=== PATIENT | male | born 1970 | race Two or more races ===

== ENCOUNTER 2016-08-29 01:27 | Emergency (ER) | payer BC ==
[~2016-08-29] VITALS: Ht 185.4 cm; Wt 74.8 kg
[2016-08-29 03:32] LABS: Basophils # (auto) 0 uL; Basophils % (auto) 0.2 % (0.0-2.0); Eosinophils # (auto) 0 uL; Eosinophils % (auto) 0.1 % (0.0-7.0); Hematocrit 45.2 % (41.0-53.0); Hemoglobin 15.2 g/dL (13.5-17.5); Lymphocytes # (auto) 1.4 uL; Lymphocytes % (auto) 12.3 % (10.0-50.0); Mean Corpuscular Hemoglobin 29.1 pg (28.0-32.0); Mean Corpuscular Hgb Conc. 33.7 g/dL (32.0-36.0); Mean Corpuscular Volume 86.3 fL (80.0-100.0); Mean Platelet Volume 8.1 fL (7.4-10.4); Monocytes # (auto) 0.6 uL; Monocytes % (auto) 5.6 % (0.0-12.0); Neutrophils # (auto) 9.3 uL; Neutrophils % (auto) 81.8 % (37.0-80.0); Platelet Count (auto) 322 10^3/uL (140-450); Red Cell Distribution Width 13.2 % (11.6-16.0); White Blood Cell 11.4 10^3/uL (4.4-10.8)
[2016-08-29 04:01] LABS: Albumin 4.2 g/dL (3.4-5.0); BUN/Creatinine Ratio 8.7; Calcium 8.4 mg/dL (8.5-10.1); Magnesium 1.9 mg/dL (1.6-2.6); Potassium 3.9 mmol/L (3.5-5.1)
[2016-08-29 04:04] LABS: Bilirubin, Total 0.5 mg/dL (0.2-1.0); Total Protein 8.7 g/dL (6.4-8.2)
[2016-08-29] MEDS ORDERED: SODIUM CHLORIDE 0.9% 1,000 ML IVB ONE (08:14)
[2016-08-29] MEDS ORDERED: PANTOPRAZOLE SODIUM 40 MG/10 ML VIAL IV STA (08:14)
[2016-08-29] MEDS ORDERED: MORPHINE SULF INJ 2 MG/ML SYRINGE 1ML IV ONE (08:15)
[2016-08-29] MEDS ORDERED: ONDANSETRON HCL 4 MG/2 ML VIAL IV ONE (08:15)
[2016-08-29 08:34] LABS: Urine Bilirubin Negative (Negative); Urine Blood Negative /uL (Negative); Urine Color Yellow (Yellow); Urine Glucose 4+ mg/dL (Normal); Urine Ketone 1+ (Negative); Urine Mucus FEW (None Seen); Urine Nitrite Negative (Negative); Urine RBC <1 /hpf (0 - 3); Urine Urobilinogen Normal (Negative); Urine pH 6.5 (5.0-8.0)
[2016-08-29 09:53] VITALS: BP 147/78
== END 2016-08-29 11:44 | disposition home or self-care (01) ==
LOC: ER 01:30
DX: K29.70 Gastritis, unspecified, without bleeding (principal); E11.9 Type 2 diabetes mellitus without complications; E78.5 Hyperlipidemia, unspecified
CPT/HCPCS: 36415; 76705; 80053; 81001; 82962; 83690; 83735; 84484; 85025; 93005; 96361; 96374; 96375; 99285; C9113; J2270; J2405; J7030

== ENCOUNTER 2020-04-07 12:12 | Inpatient (IN) | payer BC, OTHER ==
[~2020-04-07] VITALS: Ht 172.7 cm; Wt 76.1 kg
[~2020-04-07 12:12] MED LIST: BENA10TA9 PO; GABA300C10 PO; GLIP10TA9 PO; LEVO500T21 PO; METF-372 PO
[2020-04-07] MEDS ORDERED: PANTOPRAZOLE 40 MG/10 ML VIAL INJ IV STA (12:29)
[2020-04-07] MEDS ORDERED: SODIUM CHLORIDE 0.9% 1,000 ML IVB ONE (12:29)
[2020-04-07] MEDS ORDERED: HYDROmorphone HCL 2 MG/ML VL IV ONE (12:30)
[2020-04-07] MEDS ORDERED: ONDANSETRON HCL 4 MG/2 ML VIAL IV ONE (12:30)
[2020-04-07 14:47] LABS: Basophils # (auto) 0.1 10 ^3/uL (0-0.2); Basophils % (auto) 1.1 % (0.0-2.0); Eosinophils # (auto) 0 10 ^3/uL (0-0.8); Eosinophils % (auto) 0.1 % (0.0-7.0); Hematocrit 35.6 % (41.0-53.0); Hemoglobin 12.2 g/dL (13.5-17.5); Lymphocytes # (auto) 1.1 10 ^3/uL (0.4-5.4); Lymphocytes % (auto) 20.3 % (10.0-50.0); Mean Corpuscular Hemoglobin 30.4 pg (28.0-32.0); Mean Corpuscular Hgb Conc. 34.4 g/dL (32.0-36.0); Mean Corpuscular Volume 88.4 fL (80.0-100.0); Monocytes # (auto) 0.4 10 ^3/uL (0-1.3); Monocytes % (auto) 7.6 % (0.0-12.0); Neutrophils # (auto) 3.7 10 ^3/uL (1.6-8.6); Neutrophils % (auto) 70.9 % (37.0-80.0); Nucleated Red Blood Cells % 0.1 %; Platelet Count (auto) 165 10^3/uL (140-450); Red Blood Cells 4.02 10^6/uL (4.5-5.90); Red Cell Distribution Width 12.9 % (11.8-14.3); White Blood Cell 5.2 10^3/uL (4.4-10.8)
[2020-04-07 15:05] LABS: Chloride 109 mmol/L (98-107); Potassium 3.7 mmol/L (3.5-5.1); Sodium 140 mmol/L (136-145)
[2020-04-07 15:10] LABS: Alanine Aminotransferase 19 U/L (16-61); Amylase 72 U/L (25-115); Anion Gap 4 (5-15); Aspartate Aminotransferase 14 U/L (15-37); BUN/Creatinine Ratio 17.6; Blood Alcohol < 3.0 mg/dL (0-5); Blood Urea Nitrogen 16 mg/dL (7-18); Calcium 7.2 mg/dL (8.5-10.1); Carbon Dioxide 27 mmol/L (21-32); GFR African American 113 mL/min; GFR Non-African American 94 mL/min; Glucose 165 mg/dL (74-106); Lipase 485 U/L (73-393)
[2020-04-07 15:12] LABS: Alkaline Phosphatase 90 U/L (45-117); Bilirubin, Total 0.4 mg/dL (0.2-1.0)
[2020-04-07 16:42] LABS: Urine WBC None Seen /hpf (0 - 3)
[2020-04-07] MEDS ORDERED: ONDANSETRON HCL 4 MG/2 ML VIAL IV PRN ×2 (17:00→17:30)
[2020-04-07] MEDS ORDERED: MORPHINE SULF INJ 2 MG/ML SYRINGE 1ML IV PRN ×2 (17:00→17:30)
[2020-04-07] MEDS ORDERED: NITROGLYCERIN 0.4 MG SL TAB SL PRN (17:00)
[2020-04-07] MEDS ORDERED: MORPHINE SULFATE 4 MG/ML SYR/VIAL IV PRN (17:00)
[2020-04-07] MEDS ORDERED: DEXTROSE (50%) 50ML SYRG IV PRN (17:00)
[2020-04-07] MEDS ORDERED: IOHEXOL 300 MG/ML 100ML BOTTLE IJ ONE (17:02)
[2020-04-07 17:03] LABS: Urine Bacteria NONE SEEN /hpf (None Seen); Urine Blood Negative /uL (Negative); Urine Specific Gravity 1.014 (1.001-1.035)
[2020-04-07] MEDS ORDERED: hydrALAZINE HCL 20 MG/ML VL IV SCH (18:00)
[2020-04-07] MEDS ORDERED: cefTRIAXone 1GM/50ML D5W 50 ML IV ONE (18:30)
[2020-04-07] MEDS: SUCRALFATE 1 GM/10 ML ORAL SUSP PO SCH ×2 (18:31→22:20)
[2020-04-07] MEDS: PANTOPRAZOLE 40 MG TAB PO SCH ×2 (18:32→22:19)
[2020-04-07] MEDS: hydrALAZINE HCL 20 MG/ML VL IV SCH (18:33)
[2020-04-07] MEDS: SODIUM CHLORIDE 0.9% 1,000 ML IV SCH (18:41)
[2020-04-07] MEDS: ENOXAPARIN SOD 40 MG/0.4 ML SYRINGE SC SCH (18:48)
[2020-04-07 18:49] LABS: INR 1.03 (0.9-1.15)
--- NOTE | 2020-04-07 21:31 | NUR ---
ASSUMED PATIENT CARE RECEIVED REPORT AT THIS TIME FROM NURSE LASHAY RN. DUE TO REASSIGNMENT FROM CHARGE NURSE. WILL FOLLOW UP WITH PAST DUE MEDICATIONS.
--- NOTE | 2020-04-07 21:47 | NUR ---
PATIENT IS RESTING IN BED. BED IS LOCKED AT LOWEST POSITION, CALL LIGHT WITHIN REACH. DISCUSSED POC WITH PATIENT AND INSTRUCTED PATIENT TO CALL PRN. WILL CONTINUE TO MONITOR Q1H AND PRN.
[2020-04-07] MEDS: ACCU-CHEK COMFORT CURVE STRIP VI SCH (22:20)
[2020-04-07] MEDS: InsuLIN REG 1unit/0.01ml Soln (100units/ml) SC SCH (22:25)
[2020-04-08] MEDS: ACCU-CHEK COMFORT CURVE STRIP VI SCH ×5 (00:15→16:47)
--- NOTE | 2020-04-08 00:30 | NUR ---
ROUNDS PATIENT IS COMFORTABLE IN BED. SCHEDULED ACCU CHECK DONE AT THIS TIME, RESULTS ON eMAR. NO S/SX OF DISTRESS, SOB OR PAIN. WILL CONTINUE TO MONITOR Q1H AND PRN.
[2020-04-08] MEDS: InsuLIN REG 1unit/0.01ml Soln (100units/ml) SC SCH ×5 (04:00→16:50)
[2020-04-08 05:00] VITALS: BP 116/68
[2020-04-08 06:15] LABS: Basophils # (auto) 0 10 ^3/uL (0-0.2); Basophils % (auto) 1.1 % (0.0-2.0); Eosinophils # (auto) 0 10 ^3/uL (0-0.8); Eosinophils % (auto) 0.7 % (0.0-7.0); Hematocrit 37.2 % (41.0-53.0); Hemoglobin 12.9 g/dL (13.5-17.5); Lymphocytes # (auto) 1.5 10 ^3/uL (0.4-5.4); Lymphocytes % (auto) 33.5 % (10.0-50.0); Mean Corpuscular Hemoglobin 30.5 pg (28.0-32.0); Mean Corpuscular Hgb Conc. 34.7 g/dL (32.0-36.0); Mean Corpuscular Volume 87.9 fL (80.0-100.0); Monocytes # (auto) 0.5 10 ^3/uL (0-1.3); Monocytes % (auto) 10.7 % (0.0-12.0); Neutrophils # (auto) 2.4 10 ^3/uL (1.6-8.6); Platelet Count (auto) 177 10^3/uL (140-450); Red Blood Cells 4.23 10^6/uL (4.5-5.90); White Blood Cell 4.4 10^3/uL (4.4-10.8)
[2020-04-08 06:29] LABS: Albumin 2.9 g/dL (3.4-5.0); Calcium 7.6 mg/dL (8.5-10.1); Potassium 3.7 mmol/L (3.5-5.1)
[2020-04-08 06:33] LABS: Bilirubin, Total 0.5 mg/dL (0.2-1.0); Total Protein 5.7 g/dL (6.4-8.2)
[2020-04-08] MEDS: SUCRALFATE 1 GM/10 ML ORAL SUSP PO SCH ×3 (06:37→16:50)
[2020-04-08] MEDS: hydrALAZINE HCL 20 MG/ML VL IV SCH ×3 (06:42→11:44)
[2020-04-08] MEDS ORDERED: PANTOPRAZOLE 40 MG/10 ML VIAL INJ IV SCH ×2 (07:00→10:00)
--- NOTE | 2020-04-08 07:42 | NUR ---
CLOSING NOTE- NOC SHIFT PATIENT IS ALERT AND ORIENTED X4, ANSWERS IN COMPLETE SENTENCES AND MAKES APPROPRIATE EYE CONTACT. NO S/SX OF DISTRESS, SOB OR PAIN. PATIENT IS NPO; PATIENT VERBALIZES UNDERSTANDING. WILL ENDORSE PATIENT CARE TO DAY NURSE CL LARA.
[2020-04-08] MEDS: SODIUM CHLORIDE 0.9% 1,000 ML IV SCH (07:57)
[2020-04-08] MEDS ORDERED: LIDOCAINE VISCOUS 2% 15ML UD ONE (08:20)
[2020-04-08] MEDS ORDERED: SODIUM CHLORIDE LOCK 10 ML ONE (08:20)
[2020-04-08] MEDS ORDERED: diphenhdrAMINE HCL 50 MG/1 ML VL ONE (08:21)
[2020-04-08] MEDS ORDERED: fentaNYL CITRATE 100 MCG/2 ML VL ONE (08:21)
[2020-04-08] MEDS ORDERED: MIDAZOLAM HCL 5 MG/ML-1ML VIAL ONE (08:21)
[2020-04-08] MEDS: PANTOPRAZOLE 40 MG TAB PO SCH (08:49)
[2020-04-08 09:00] VITALS: BP 121/62
[2020-04-08] MEDS ORDERED: cefTRIAXone 1GM/50ML D5W 50 ML IV SCH (09:00)
--- NOTE | 2020-04-08 09:48 | NUR ---
TOOK PATIENT DOWN TO PRE OP FOR EGD WITH DR. SANTIAGO. CL LARA TOOK OVER CARE OF PATIENT AT THIS TIME.
--- NOTE | 2020-04-08 10:20 | NUR ---
Called [facility] [place] and spoke with Jayde Pérez, gave a clinical report and was given authorization for 04/08/20 #[id number].
[2020-04-08] MEDS: ENOXAPARIN SOD 40 MG/0.4 ML SYRINGE SC SCH (11:43)
[2020-04-08 13:00] VITALS: BP 132/77
[2020-04-08] MEDS ORDERED: PANT40T PO (14:18)
[2020-04-08] MEDS ORDERED: LISI-646 PO (14:34)
[2020-04-08] MEDS ORDERED: ATOR20TA PO (14:34)
[2020-04-08] MEDS ORDERED: INSUINJ2 SC (14:34)
[2020-04-08 15:48] LABS: Cholesterol 114 mg/dL (< 200); Triglycerides 117 mg/dL (< 150)
[2020-04-08 15:50] LABS: HDL Cholesterol 41 mg/dL (40-59); LDL Cholesterol 61 mg/dL (< 100)
[2020-04-08 16:40] VITALS: BP 129/67
--- NOTE | 2020-04-08 16:50 | NUR ---
Discharge instructions given as ordered. Encourage to follow up with Primary care provider as instructed. All questions and concerns addressed. Patient verbalized understanding. Medication reconciliation form completed and copy given to patient. IV removed with catheter intact, pressure dressing applied. Telemetry unit returned to ICU. Patient taken to vehicle via wheelchair with all personal belongings, accompanied by staff and family member. No distress noted at time of departure.
== END 2020-04-08 16:50 | disposition home or self-care (01) | DRG 391 ==
LOC: EDBD 12:12 → ER 12:12 → EDUNIT# 12:12 → WEST WING 20:15 → TELE-WESTW 21:09
PROVIDERS: ATTEND Internal Medicine
PROC: 0DB68ZX Excision of Stomach, Via Natural or Artificial Opening Endoscopic, Diagnostic (ICD-10-PCS; principal; 2020-04-08 09:49)
DX: K29.70 Gastritis, unspecified, without bleeding (principal); K85.90 Acute pancreatitis without necrosis or infection, unspecified; E11.9 Type 2 diabetes mellitus without complications; E78.5 Hyperlipidemia, unspecified; I10 Essential (primary) hypertension; Z79.84 Long term (current) use of oral hypoglycemic drugs; Z79.899 Other long term (current) drug therapy; Z20.828 Contact with and (suspected) exposure to other viral communicable diseases
CPT/HCPCS: 36415; 71045; 74177; 76705; 80053; 80061; 80320; 81001; 82150; 82962; 83036; 83690; 85025; 85610; 86850; 86900; 86901; 96361; 96374; 96375; C9113; G0378; J0696; J1815; J2250; J2405

== ENCOUNTER 2021-05-08 04:08 | Emergency (ER) | payer OTHER ==
[~2021-05-08] VITALS: Ht 185.4 cm; Wt 86.2 kg
[~2021-05-08 04:08] MED LIST changes: +ATOR20TA PO; -BENA10TA9 PO; -GABA300C10 PO; -GLIP10TA9 PO; +INSUINJ2 SC; -LEVO500T21 PO; +LISI20TA28 PO; -METF-372 PO; +PANT40T PO
[2021-05-08 05:31] LABS: Basophils # (auto) 0 10 ^3/uL (0-0.2); Basophils % (auto) 0.7 % (0.0-2.0); Eosinophils # (auto) 0 10 ^3/uL (0-0.8); Eosinophils % (auto) 0.1 % (0.0-7.0); Hematocrit 42.6 % (41.0-53.0); Hemoglobin 14.6 g/dL (13.5-17.5); Lymphocytes # (auto) 1.1 10 ^3/uL (0.4-5.4); Lymphocytes % (auto) 15.7 % (10.0-50.0); Mean Corpuscular Hemoglobin 29.8 pg (28.0-32.0); Mean Corpuscular Hgb Conc. 34.3 g/dL (32.0-36.0); Mean Corpuscular Volume 86.8 fL (80.0-100.0); Monocytes # (auto) 0.3 10 ^3/uL (0-1.3); Monocytes % (auto) 4.2 % (0.0-12.0); Neutrophils # (auto) 5.5 10 ^3/uL (1.6-8.6); Neutrophils % (auto) 79.3 % (37.0-80.0); Nucleated Red Blood Cells % 0.2 %; Red Blood Cells 4.91 10^6/uL (4.5-5.90); Red Cell Distribution Width 13.3 % (11.8-14.3); White Blood Cell 6.9 10^3/uL (4.4-10.8)
[2021-05-08 05:43] LABS: Alanine Aminotransferase 28 U/L (16-61); Albumin 4.1 g/dL (3.4-5.0); Amylase 64 U/L (25-115); Anion Gap 10 (5-15); Aspartate Aminotransferase 15 U/L (15-37); BUN/Creatinine Ratio 18.7; Blood Urea Nitrogen 20 mg/dL (7-18); Calcium 8.8 mg/dL (8.5-10.1); Carbon Dioxide 24 mmol/L (21-32); Chloride 101 mmol/L (98-107); GFR African American 94 mL/min; GFR Non-African American 77 mL/min; Glucose 367 mg/dL (74-106); Lipase 177 U/L (73-393); Magnesium 2.2 mg/dL (1.6-2.6); Potassium 4.2 mmol/L (3.5-5.1); Sodium 135 mmol/L (136-145)
[2021-05-08 05:48] LABS: Alkaline Phosphatase 147 U/L (45-117); Bilirubin, Total 0.7 mg/dL (0.2-1.0); Total Protein 8.2 g/dL (6.4-8.2)
[2021-05-08] MEDS ORDERED: ONDANSETRON HCL 4 MG/2 ML VIAL IV ONE ×2 (06:00→11:15)
[2021-05-08 08:29] LABS: Urine Bacteria NONE SEEN /hpf (None Seen); Urine Blood Negative /uL (Negative); Urine WBC <1 /hpf (0 - 3)
[2021-05-08] MEDS ORDERED: PROCHLORPERAZINE EDISYLATE 5 MG/ML 2ML VIAL IV ONE (09:30)
[2021-05-08] MEDS ORDERED: ALUM & MAG HYDROX-SIMETH LIQ(MAALOX) 30 ML PO ONE (09:30)
[2021-05-08] MEDS ORDERED: MORPHINE SULFATE 4 MG/ML SYR/VIAL IV ONE (09:30)
[2021-05-08] MEDS ORDERED: PANTOPRAZOLE 40 MG TAB PO ONE (09:30)
[2021-05-08] MEDS ORDERED: DONNATAL 5ml ORAL Elix (BELLADONNA ALK-PHENOBARB) PO ONE (09:30)
[2021-05-08] MEDS ORDERED: LIDOCAINE VISCOUS 2% 15ML UD PO ONE (09:30)
[2021-05-08] MEDS ORDERED: SODIUM CHLORIDE 0.9% 1,000 ML IVB ONE (09:30)
[2021-05-08] MEDS ORDERED: MORPHINE SULFATE INJECTION 2 MG/ML SYRG IV ONE (11:15)
[2021-05-08 14:37] VITALS: BP 146/77
== END 2021-05-08 14:43 | disposition home or self-care (01) ==
LOC: ER 04:08 → EDBD 04:08 → EDUNIT# 04:08 → ER 14:43
DX: K52.9 Noninfective gastroenteritis and colitis, unspecified (principal); E11.65 Type 2 diabetes mellitus with hyperglycemia; K90.49 Malabsorption due to intolerance, not elsewhere classified; I10 Essential (primary) hypertension; E78.5 Hyperlipidemia, unspecified; Z79.4 Long term (current) use of insulin; Z79.899 Other long term (current) drug therapy
CPT/HCPCS: 36415; 74176; 80053; 81001; 82150; 83690; 83735; 84484; 85025; 93005; 96361; 96374; 96375; 96376; 99285; J0780; J2270; J2405; J7030

== ENCOUNTER 2021-05-09 22:00 | Emergency (ER) | payer OTHER ==
[~2021-05-09] VITALS: Ht 185.4 cm; Wt 77.1 kg
[2021-05-09] MEDS ORDERED: NALBUPHINE HCL 10 MG/1ml INJECTION IV ONE (22:30)
[2021-05-09] MEDS ORDERED: SODIUM CHLORIDE 0.9% 1,000 ML IVB ONE (22:30)
[2021-05-09] MEDS ORDERED: ONDANSETRON HCL 4 MG/2 ML VIAL IV ONE (22:30)
[2021-05-09] MEDS ORDERED: PANTOPRAZOLE 40 MG/10 ML VIAL INJ IV ONE (22:30)
[2021-05-09 22:40] LABS: Basophils # (auto) 0.1 10 ^3/uL (0-0.2); Basophils % (auto) 0.7 % (0.0-2.0); Eosinophils # (auto) 0 10 ^3/uL (0-0.8); Eosinophils % (auto) 0.5 % (0.0-7.0); Hematocrit 42.5 % (41.0-53.0); Hemoglobin 14.7 g/dL (13.5-17.5); Lymphocytes # (auto) 1.7 10 ^3/uL (0.4-5.4); Mean Corpuscular Hemoglobin 30.2 pg (28.0-32.0); Mean Corpuscular Hgb Conc. 34.6 g/dL (32.0-36.0); Mean Corpuscular Volume 87.3 fL (80.0-100.0); Monocytes # (auto) 0.7 10 ^3/uL (0-1.3); Neutrophils # (auto) 5.7 10 ^3/uL (1.6-8.6); Neutrophils % (auto) 69.8 % (37.0-80.0); Red Blood Cells 4.86 10^6/uL (4.5-5.90); Red Cell Distribution Width 13.1 % (11.8-14.3); White Blood Cell 8.1 10^3/uL (4.4-10.8)
[2021-05-09 22:54] LABS: Albumin 4.2 g/dL (3.4-5.0); Calcium 8.9 mg/dL (8.5-10.1)
[2021-05-09 22:59] LABS: BUN/Creatinine Ratio 14.7; Bilirubin, Total 0.5 mg/dL (0.2-1.0); Total Protein 8.3 g/dL (6.4-8.2)
[2021-05-09 23:17] LABS: Magnesium 2.6 mg/dL (1.6-2.6)
[2021-05-10 04:34] LABS: Urine Bacteria NONE SEEN /hpf (None Seen); Urine Blood Negative /uL (Negative); Urine Specific Gravity 1.044 (1.001-1.035); Urine WBC 1 /hpf (0 - 3)
[2021-05-10 05:25] VITALS: BP 188/84
== END 2021-05-10 06:00 | disposition home or self-care (01) ==
LOC: ER 22:01
DX: K21.9 Gastro-esophageal reflux disease without esophagitis (principal); K86.1 Other chronic pancreatitis; I10 Essential (primary) hypertension; E11.9 Type 2 diabetes mellitus without complications; E78.5 Hyperlipidemia, unspecified; Z79.4 Long term (current) use of insulin; Z79.899 Other long term (current) drug therapy
CPT/HCPCS: 36415; 80053; 80320; 81001; 82150; 83690; 83735; 84484; 85025; 93005; 96361; 96374; 96375; 99284; C9113; J2300; J2405; J7030

== ENCOUNTER 2021-05-10 07:42 | Emergency (ER) | payer OTHER ==
[~2021-05-10] VITALS: Ht 185.4 cm; Wt 77.1 kg
[2021-05-10] MEDS ORDERED: SODIUM CHLORIDE 0.9% 1,000 ML IVB ONE (08:15)
[2021-05-10] MEDS ORDERED: ONDANSETRON HCL 4 MG/2 ML VIAL IV ONE (08:15)
[2021-05-10] MEDS ORDERED: MORPHINE SULFATE 4 MG/ML SYR/VIAL IV ONE (08:15)
[2021-05-10] MEDS ORDERED: SODIUM CHLORIDE 0.9% 1,000 ML IV ONE (08:15)
[2021-05-10 08:21] LABS: Basophils # (auto) 0.1 10 ^3/uL (0-0.2); Basophils % (auto) 0.6 % (0.0-2.0); Eosinophils # (auto) 0 10 ^3/uL (0-0.8); Hematocrit 40.7 % (41.0-53.0); Hemoglobin 14.3 g/dL (13.5-17.5); Lymphocytes # (auto) 0.8 10 ^3/uL (0.4-5.4); Lymphocytes % (auto) 8.3 % (10.0-50.0); Mean Corpuscular Hemoglobin 30.5 pg (28.0-32.0); Monocytes # (auto) 0.3 10 ^3/uL (0-1.3); Monocytes % (auto) 3.6 % (0.0-12.0); Neutrophils # (auto) 8.4 10 ^3/uL (1.6-8.6); Neutrophils % (auto) 87.5 % (37.0-80.0); Red Blood Cells 4.68 10^6/uL (4.5-5.90); Red Cell Distribution Width 13.2 % (11.8-14.3); White Blood Cell 9.6 10^3/uL (4.4-10.8)
[2021-05-10 08:40] LABS: Albumin 4.1 g/dL (3.4-5.0); Anion Gap 9 (5-15); Blood Urea Nitrogen 23 mg/dL (7-18); Calcium 8.6 mg/dL (8.5-10.1); Carbon Dioxide 25 mmol/L (21-32); Chloride 102 mmol/L (98-107); Glucose 299 mg/dL (74-106); Lipase 198 U/L (73-393); Potassium 4.2 mmol/L (3.5-5.1); Sodium 136 mmol/L (136-145)
[2021-05-10 08:47] LABS: Alanine Aminotransferase 24 U/L (16-61); Alkaline Phosphatase 125 U/L (45-117); Aspartate Aminotransferase 17 U/L (15-37); BUN/Creatinine Ratio 20.7; Bilirubin, Total 0.5 mg/dL (0.2-1.0); GFR African American 90 mL/min; GFR Non-African American 74 mL/min; Total Protein 8.1 g/dL (6.4-8.2)
[2021-05-10 10:27] LABS: Urine Bacteria NONE SEEN /hpf (None Seen); Urine Blood Negative /uL (Negative); Urine Specific Gravity 1.045 (1.001-1.035); Urine WBC 1 /hpf (0 - 3)
[2021-05-10 10:41] LABS: Alcohol, Urine < 3.0 mg/dL (0-10); Amphetamine Screen, Urine NEGATIVE (NEGATIVE); Barbiturate Scree,Urine NEGATIVE (NEGATIVE); Benzodiazephine Screen, Urine NEGATIVE (NEGATIVE); Cannabinoid Screen, Urine NEGATIVE (NEGATIVE); Cocaine Screen, Urine NEGATIVE (NEGATIVE); Opiate Scree,Urine POSITIVE (NEGATIVE); Phencyclidine Screen, Urine NEGATIVE (NEGATIVE)
[2021-05-10 16:45] LABS: Urine Blood Negative /uL (Negative); Urine Specific Gravity 1.015 (1.001-1.035)
[2021-05-10 16:54] VITALS: BP 158/74
== END 2021-05-10 16:57 | disposition home or self-care (01) ==
LOC: ER 07:42
DX: R10.13 Epigastric pain (principal); R11.2 Nausea with vomiting, unspecified; E11.9 Type 2 diabetes mellitus without complications; E78.5 Hyperlipidemia, unspecified; I10 Essential (primary) hypertension; Z20.822 Contact with and (suspected) exposure to COVID-19; Z79.899 Other long term (current) drug therapy; Z79.4 Long term (current) use of insulin
CPT/HCPCS: 36415; 80053; 80307; 81001; 81003; 82010; 83036; 83605; 83690; 84484; 85025; 87040; 87086; 87426; 96361; 96374; 96375; 99284; J2270; J2405; J7030

== ENCOUNTER 2022-04-11 10:21 | Inpatient (IN) | payer OTHER ==
[~2022-04-11] VITALS: Ht 185.4 cm; Wt 74.7 kg
[2022-04-11] MEDS ORDERED: MORPHINE SULFATE 4 MG/ML SYR/VIAL IV ONE ×2 (11:15→14:00)
[2022-04-11] MEDS ORDERED: PANTOPRAZOLE 40 MG/10 ML VIAL INJ IV ONE (11:15)
[2022-04-11] MEDS ORDERED: SODIUM CHLORIDE 0.9% 1,000 ML IVB ONE (11:15)
[2022-04-11] MEDS ORDERED: PROCHLORPERAZINE EDISYLATE 5 MG/ML 2ML VIAL IV ONE (11:15)
[2022-04-11 11:39] LABS: Albumin 4.4 g/dL (3.4-5.0); Basophils # (auto) 0.1 10 ^3/uL (0-0.2); Basophils % (auto) 0.6 % (0.0-2.0); Calcium 9.4 mg/dL (8.5-10.1); Eosinophils # (auto) 0 10 ^3/uL (0-0.8); Hematocrit 41.1 % (41.0-53.0); Hemoglobin 14.1 g/dL (13.5-17.5); Lymphocytes # (auto) 0.7 10 ^3/uL (0.4-5.4); Lymphocytes % (auto) 7.3 % (10.0-50.0); Mean Corpuscular Hemoglobin 30.2 pg (28.0-32.0); Mean Corpuscular Hgb Conc. 34.4 g/dL (32.0-36.0); Mean Corpuscular Volume 87.7 fL (80.0-100.0); Monocytes # (auto) 0.3 10 ^3/uL (0-1.3); Monocytes % (auto) 3.6 % (0.0-12.0); Neutrophils # (auto) 8.5 10 ^3/uL (1.6-8.6); Neutrophils % (auto) 88.5 % (37.0-80.0); Nucleated Red Blood Cells % 0.1 %; Potassium 4.2 mmol/L (3.5-5.1); Red Blood Cells 4.68 10^6/uL (4.5-5.90); Red Cell Distribution Width 12.8 % (11.8-14.3); White Blood Cell 9.6 10^3/uL (4.4-10.8)
[2022-04-11 11:44] LABS: Bilirubin, Total 0.9 mg/dL (0.2-1.0)
[2022-04-11 12:22] LABS: INR 1.01 (0.9-1.15); Partial Thromboplastin Time 22.8 sec (24.6-33.4)
[2022-04-11] MEDS ORDERED: NITROGLYCERIN 0.4 MG SL TAB SL PRN (14:15)
[2022-04-11] MEDS ORDERED: MORPHINE SULFATE INJ 2 MG/ml SYRG IV PRN (14:15)
[2022-04-11] MEDS ORDERED: DEXTROSE (50%) 50ML SYRG IV PRN (14:30)
[2022-04-11 14:46] LABS: Amylase 38 U/L (25-115); Lipase 106 U/L (73-393)
[2022-04-11 15:05] LABS: Hematocrit 39.9 % (41.0-53.0); Hemoglobin 13.6 g/dL (13.5-17.5)
[2022-04-11] MEDS: SUCRALFATE 1 GM/10 ML ORAL SUSP PO SCH ×2 (17:56→22:04)
[2022-04-11] MEDS: InsuLIN REG 1unit/0.01ml Soln (100units/ml) SC SCH (18:12)
[2022-04-11] MEDS: ACCU-CHEK COMFORT CURVE STRIP VI SCH (18:12)
[2022-04-11 18:57] LABS: Urine Bacteria FEW /hpf (None Seen); Urine Blood Negative /uL (Negative); Urine Specific Gravity 1.042 (1.001-1.035); Urine WBC 1 /hpf (0 - 3)
[2022-04-11] MEDS: MORPHINE SULFATE INJ 2 MG/ml SYRG IV PRN (20:17)
[2022-04-11] MEDS: ONDANSETRON HCL 4 MG/2 ML VIAL IV PRN (20:18)
[2022-04-11] MEDS ORDERED: PANTOPRAZOLE 40 MG TAB PO SCH (22:00)
[2022-04-11] MEDS: PANTOPRAZOLE 40 MG/10 ML VIAL INJ IV SCH (22:05)
[2022-04-11 22:38] LABS: Hematocrit 40.5 % (41.0-53.0)
[2022-04-11 23:46] VITALS: BP 161/80
[2022-04-12 00:05] VITALS: BP 184/85
[2022-04-12] MEDS: ACCU-CHEK COMFORT CURVE STRIP VI SCH ×3 (00:20→12:47)
[2022-04-12] MEDS: MORPHINE SULFATE INJ 2 MG/ml SYRG IV PRN ×3 (00:22→10:33)
[2022-04-12] MEDS: ONDANSETRON HCL 4 MG/2 ML VIAL IV PRN ×2 (00:22→05:20)
[2022-04-12 05:00] VITALS: BP 158/74
[2022-04-12] MEDS: SUCRALFATE 1 GM/10 ML ORAL SUSP PO SCH ×2 (05:11→10:32)
[2022-04-12] MEDS: InsuLIN REG 1unit/0.01ml Soln (100units/ml) SC SCH ×3 (05:16→12:56)
[2022-04-12 05:26] LABS: Basophils # (auto) 0 10 ^3/uL (0-0.2); Basophils % (auto) 0.8 % (0.0-2.0); Eosinophils # (auto) 0.1 10 ^3/uL (0-0.8); Eosinophils % (auto) 0.9 % (0.0-7.0); Hematocrit 37.6 % (41.0-53.0); Hemoglobin 13.3 g/dL (13.5-17.5); Lymphocytes # (auto) 1.7 10 ^3/uL (0.4-5.4); Mean Corpuscular Hgb Conc. 35.4 g/dL (32.0-36.0); Mean Corpuscular Volume 87.5 fL (80.0-100.0); Monocytes # (auto) 0.6 10 ^3/uL (0-1.3); Neutrophils % (auto) 62.3 % (37.0-80.0); Nucleated Red Blood Cells % 0.1 %; Red Cell Distribution Width 12.9 % (11.8-14.3); White Blood Cell 6.5 10^3/uL (4.4-10.8)
[2022-04-12 05:37] LABS: INR 1.03 (0.9-1.15); Partial Thromboplastin Time 25.1 sec (24.6-33.4)
[2022-04-12 05:40] LABS: BUN/Creatinine Ratio 19.5; Calcium 8.3 mg/dL (8.5-10.1); Potassium 3.9 mmol/L (3.5-5.1)
[2022-04-12 08:00] VITALS: BP 152/79
[2022-04-12] MEDS ORDERED: SODIUM CHLORIDE LOCK 10 ML ONE (08:04)
[2022-04-12] MEDS ORDERED: LIDOCAINE VISCOUS 2% 15ML UD ONE (08:04)
[2022-04-12] MEDS ORDERED: fentaNYL CITRATE 100 MCG/2 ML VL ONE (08:05)
[2022-04-12] MEDS ORDERED: diphenhdrAMINE HCL 50 MG/1 ML VL ONE (08:05)
[2022-04-12] MEDS ORDERED: MIDAZOLAM HCL 5 MG/ML-1ML VIAL ONE (08:05)
[2022-04-12 09:00] VITALS: BP 152/79
[2022-04-12] MEDS: LISINOPRIL 20 MG TAB PO SCH ×2 (09:31→10:32)
[2022-04-12] MEDS: PANTOPRAZOLE 40 MG/10 ML VIAL INJ IV SCH ×2 (09:31→10:32)
[2022-04-12] MEDS: ATORVASTATIN 20 MG TAB PO SCH ×2 (09:31→10:32)
[2022-04-12] MEDS ORDERED: SUCR1SUS10 PO (12:35)
[2022-04-12] MEDS ORDERED: PANT40T PO (12:35)
[2022-04-12 12:46] VITALS: BP 124/64
[2022-04-12 13:35] VITALS: BP 124/64
== END 2022-04-12 15:06 | disposition home or self-care (01) | DRG 379 ==
LOC: ER 10:42 → TELE 14:13 → TELE-EAST 23:27
PROVIDERS: ADMIT Hospitalist; ATTEND Hospitalist
PROC: 0DB68ZX Excision of Stomach, Via Natural or Artificial Opening Endoscopic, Diagnostic (ICD-10-PCS; principal; 2022-04-12 08:59)
DX: K29.71 Gastritis, unspecified, with bleeding (principal); K21.01 Gastro-esophageal reflux disease with esophagitis, with bleeding; E11.9 Type 2 diabetes mellitus without complications; E78.5 Hyperlipidemia, unspecified; I11.9 Hypertensive heart disease without heart failure; Z82.49 Family history of ischemic heart disease and other diseases of the circulatory system; Z83.3 Family history of diabetes mellitus; Z20.822 Contact with and (suspected) exposure to COVID-19; Z79.4 Long term (current) use of insulin
CPT/HCPCS: 36415; 71045; 74176; 80048; 80053; 81001; 82150; 82962; 83690; 85014; 85018; 85025; 85610; 85730; 86850; 86900; 86901; 93005; 96361; 96374; 96375; 96376; C9113; G0378; J1815; J2250; J2405

== ENCOUNTER 2022-04-14 14:17 | Inpatient (IN) | payer OTHER ==
[~2022-04-14] VITALS: Ht 185.4 cm; Wt 78.1 kg
[~2022-04-14 14:17] MED LIST changes: +SUCR1SUS10 PO
[2022-04-14] MEDS ORDERED: ALUM & MAG HYDROX-SIMETH LIQ(MAALOX) 30 ML PO ONE (14:30)
[2022-04-14] MEDS ORDERED: LIDOCAINE VISCOUS 2% 15ML UD PO ONE (14:30)
[2022-04-14] MEDS ORDERED: DONNATAL 5ml ORAL Elix (BELLADONNA ALK-PHENOBARB) PO ONE (14:30)
[2022-04-14] MEDS ORDERED: SODIUM CHLORIDE 0.9% 1,000 ML IV ONE ×2 (14:30)
[2022-04-14 14:58] LABS: Basophils # (auto) 0 10 ^3/uL (0-0.2); Basophils % (auto) 0.6 % (0.0-2.0); Eosinophils # (auto) 0 10 ^3/uL (0-0.8); Eosinophils % (auto) 0.1 % (0.0-7.0); Hematocrit 42.5 % (41.0-53.0); Hemoglobin 14.6 g/dL (13.5-17.5); Lymphocytes % (auto) 15.2 % (10.0-50.0); Mean Corpuscular Hemoglobin 30.1 pg (28.0-32.0); Mean Corpuscular Hgb Conc. 34.3 g/dL (32.0-36.0); Mean Corpuscular Volume 87.7 fL (80.0-100.0); Monocytes # (auto) 0.4 10 ^3/uL (0-1.3); Monocytes % (auto) 6.5 % (0.0-12.0); Neutrophils # (auto) 5.3 10 ^3/uL (1.6-8.6); Neutrophils % (auto) 77.6 % (37.0-80.0); Red Blood Cells 4.85 10^6/uL (4.5-5.90); Red Cell Distribution Width 12.9 % (11.8-14.3); White Blood Cell 6.8 10^3/uL (4.4-10.8)
[2022-04-14 15:15] LABS: INR 1.01 (0.9-1.15); Partial Thromboplastin Time 25.1 sec (24.6-33.4)
[2022-04-14] MEDS ORDERED: ONDANSETRON HCL 4 MG/2 ML VIAL IV ONE ×2 (15:15→20:00)
[2022-04-14] MEDS ORDERED: MORPHINE SULFATE INJ 2 MG/ml SYRG IV ONE ×2 (15:15→17:15)
[2022-04-14 15:27] LABS: Albumin 4.3 g/dL (3.4-5.0); Potassium 3.9 mmol/L (3.5-5.1)
[2022-04-14 15:30] LABS: Bilirubin, Total 0.6 mg/dL (0.2-1.0)
[2022-04-14] MEDS ORDERED: IOHEXOL 300 MG/ML 100ML BOTTLE IJ ONE (15:49)
[2022-04-14] MEDS ORDERED: PANTOPRAZOLE 40 MG/10 ML VIAL INJ IV ONE (16:30)
[2022-04-14] MEDS ORDERED: PROCHLORPERAZINE EDISYLATE 5 MG/ML 2ML VIAL IV ONE (17:15)
[2022-04-14] MEDS ORDERED: HYDROmorphone HCL 2 MG/ML VL/or syr IV ONE (19:15)
[2022-04-15] VITALS (7 sets, daily range): BP systolic 128–139; BP diastolic 52–72
[2022-04-15] MEDS ORDERED: ALBUTEROL SULF 2.5 MG/0.5ML(0.5%) NEB SOLN NEB PRN
[2022-04-15] MEDS ORDERED: IPRATROPIUM BROM 0.5 MG/2.5ML INH SOL NEB PRN
[2022-04-15] MEDS ORDERED: MORPHINE SULFATE INJ 2 MG/ml SYRG IV PRN ×2
[2022-04-15] MEDS ORDERED: ACETAMINOPHEN 325 MG TAB PO PRN
[2022-04-15] MEDS ORDERED: hydrALAZINE HCL 20 MG/ML VL IV PRN
[2022-04-15] MEDS ORDERED: NITROGLYCERIN 0.4 MG SL TAB SL PRN
[2022-04-15] MEDS ORDERED: DOCUSATE SOD 100 MG CAP PO PRN
[2022-04-15] MEDS ORDERED: DEXTROSE (50%) 50ML SYRG IV PRN
[2022-04-15] MEDS: ACCU-CHEK COMFORT CURVE STRIP VI SCH ×6 (00:18→20:14)
[2022-04-15] MEDS: InsuLIN REG 1unit/0.01ml Soln (100units/ml) SC SCH ×6 (00:18→20:20)
[2022-04-15] MEDS: HYDROcodone-ACET 5/325MG TAB PO PRN ×4 (01:58→22:50)
[2022-04-15] MEDS: ONDANSETRON HCL 4 MG/2 ML VIAL IV PRN ×3 (01:58→20:21)
[2022-04-15] MEDS: SODIUM CHLOR 0.9% PF (SALINE LOCK) 10ML VIAL/SYR IV SCH ×3 (05:27→22:48)
[2022-04-15 08:00] LABS: Basophils # (auto) 0.1 10 ^3/uL (0-0.2); Basophils % (auto) 0.9 % (0.0-2.0); Eosinophils # (auto) 0.1 10 ^3/uL (0-0.8); Hematocrit 38.1 % (41.0-53.0); Hemoglobin 13.6 g/dL (13.5-17.5); Lymphocytes % (auto) 33.6 % (10.0-50.0); Mean Corpuscular Hemoglobin 30.8 pg (28.0-32.0); Mean Corpuscular Hgb Conc. 35.5 g/dL (32.0-36.0); Mean Corpuscular Volume 86.6 fL (80.0-100.0); Monocytes # (auto) 0.6 10 ^3/uL (0-1.3); Monocytes % (auto) 10.1 % (0.0-12.0); Neutrophils # (auto) 3.2 10 ^3/uL (1.6-8.6); Neutrophils % (auto) 54.4 % (37.0-80.0); Nucleated Red Blood Cells % 0.1 %; Red Cell Distribution Width 12.5 % (11.8-14.3); White Blood Cell 5.8 10^3/uL (4.4-10.8)
[2022-04-15 08:03] LABS: Albumin 3.6 g/dL (3.4-5.0); Calcium 8.3 mg/dL (8.5-10.1); Potassium 3.3 mmol/L (3.5-5.1)
[2022-04-15 08:09] LABS: BUN/Creatinine Ratio 18.6; Bilirubin, Total 0.6 mg/dL (0.2-1.0); Total Protein 6.9 g/dL (6.4-8.2)
[2022-04-15] MEDS: ENOXAPARIN SOD 40 MG/0.4 ML SYRINGE SC SCH (09:06)
[2022-04-15] MEDS: amLODIPine BESYLATE 5 MG TAB PO SCH (09:07)
[2022-04-15] MEDS ORDERED: FAMOTIDINE (10MG/ML) 2ML VL IV SCH (10:00)
[2022-04-15] MEDS: SUCRALFATE 1 GM/10 ML ORAL SUSP PO SCH ×3 (11:56→22:48)
[2022-04-15] MEDS ORDERED: POTASSIUM CHL 20MEQ/100ML 100 ML IV ONE (12:15)
[2022-04-15] MEDS: PANTOPRAZOLE 40 MG TAB PO SCH (22:49)
[2022-04-16] MEDS: ACCU-CHEK COMFORT CURVE STRIP VI SCH ×6 (00:07→20:10)
[2022-04-16] MEDS: InsuLIN REG 1unit/0.01ml Soln (100units/ml) SC SCH ×6 (04:15→20:15)
[2022-04-16 05:00] VITALS: BP 144/71
[2022-04-16 05:57] LABS: Basophils # (auto) 0.1 10 ^3/uL (0-0.2); Basophils % (auto) 0.9 % (0.0-2.0); Eosinophils # (auto) 0.1 10 ^3/uL (0-0.8); Eosinophils % (auto) 1.3 % (0.0-7.0); Hematocrit 39.4 % (41.0-53.0); Hemoglobin 13.6 g/dL (13.5-17.5); Lymphocytes # (auto) 1.9 10 ^3/uL (0.4-5.4); Mean Corpuscular Hemoglobin 30.2 pg (28.0-32.0); Mean Corpuscular Hgb Conc. 34.6 g/dL (32.0-36.0); Mean Corpuscular Volume 87.3 fL (80.0-100.0); Monocytes # (auto) 0.6 10 ^3/uL (0-1.3); Monocytes % (auto) 8.9 % (0.0-12.0); Neutrophils # (auto) 3.7 10 ^3/uL (1.6-8.6); Neutrophils % (auto) 58.9 % (37.0-80.0); Nucleated Red Blood Cells % 0.1 %; Red Blood Cells 4.51 10^6/uL (4.5-5.90); Red Cell Distribution Width 12.7 % (11.8-14.3); White Blood Cell 6.2 10^3/uL (4.4-10.8)
[2022-04-16 06:10] LABS: Calcium 8.7 mg/dL (8.5-10.1); Potassium 3.8 mmol/L (3.5-5.1)
[2022-04-16 06:13] LABS: BUN/Creatinine Ratio 21.3
[2022-04-16] MEDS: SODIUM CHLOR 0.9% PF (SALINE LOCK) 10ML VIAL/SYR IV SCH ×3 (06:24→21:52)
[2022-04-16] MEDS: SUCRALFATE 1 GM/10 ML ORAL SUSP PO SCH ×4 (06:35→21:52)
[2022-04-16 08:51] VITALS: BP 132/78
[2022-04-16] MEDS: ENOXAPARIN SOD 40 MG/0.4 ML SYRINGE SC SCH (10:05)
[2022-04-16] MEDS: amLODIPine BESYLATE 5 MG TAB PO SCH (10:05)
[2022-04-16] MEDS: PANTOPRAZOLE 40 MG TAB PO SCH ×2 (10:05→21:53)
[2022-04-16] MEDS: HYDROcodone-ACET 5/325MG TAB PO PRN ×3 (10:06→21:53)
[2022-04-16 12:36] VITALS: BP 148/83
[2022-04-16 17:00] VITALS: BP 128/77
[2022-04-16 22:00] VITALS: BP 131/70
[2022-04-16 23:21] VITALS: BP 131/70
[2022-04-17] MEDS ORDERED: ATORVASTATIN 20 MG TAB PO SCH (10:00)
== END 2022-04-16 23:55 | disposition short-term general hospital (02) | DRG 446 ==
LOC: EDBD 14:17 → ER 14:17 → OVERFLOW 04-15 00:01 → WEST WING 04-15 00:53
PROVIDERS: ADMIT Nurse Practitioner Family; ATTEND Internal Medicine
DX: K82.8 Other specified diseases of gallbladder (principal); I10 Essential (primary) hypertension; E11.65 Type 2 diabetes mellitus with hyperglycemia; G89.29 Other chronic pain; R00.1 Bradycardia, unspecified; E78.5 Hyperlipidemia, unspecified; Z87.19 Personal history of other diseases of the digestive system; Z20.822 Contact with and (suspected) exposure to COVID-19; Z79.4 Long term (current) use of insulin
CPT/HCPCS: 36415; 78226; 80048; 80053; 82962; 83036; 85025; 87081; 93005; 96361; 96374; 96375; 96376; G0378; J1815; J2405; J3480; J3490

== ENCOUNTER 2023-04-08 14:58 | Emergency (ER) | payer OTHER ==
[~2023-04-08] VITALS: Ht 185.4 cm; Wt 74.1 kg
[~2023-04-08 14:58] MED LIST changes: -LISI20TA28 PO; +LISI20TA56 PO; -SUCR1SUS10 PO; +SUCR1SUS26 PO
[2023-04-08] MEDS ORDERED: ACET-1080 PO (16:13)
[2023-04-08] MEDS ORDERED: CEPH500C PO (16:13)
[2023-04-08 16:20] VITALS: BP 140/70; PULSE 70; RESP 18; O2SAT 98
== END 2023-04-08 16:23 | disposition home or self-care (01) ==
LOC: ER 15:06
DX: S90.121A Contusion of right lesser toe(s) without damage to nail, initial encounter (principal); E11.9 Type 2 diabetes mellitus without complications; E78.5 Hyperlipidemia, unspecified; I10 Essential (primary) hypertension; Z79.899 Other long term (current) drug therapy; Z79.84 Long term (current) use of oral hypoglycemic drugs; W01.0XXA Fall on same level from slipping, tripping and stumbling without subsequent striking against object, initial encounter; Y93.89 Activity, other specified; Y92.89 Other specified places as the place of occurrence of the external cause; Y99.8 Other external cause status
CPT/HCPCS: 73630

== ENCOUNTER 2024-11-22 17:06 | Inpatient (IN) | payer OTHER ==
[~2024-11-22] VITALS: Ht 185.4 cm; Wt 75.6 kg
[~2024-11-22 17:06] MED LIST changes: +ACET-1080 PO; +CEPH500C PO
--- NOTE | 2024-11-22 18:03 | ED.PDOC ---
GI ASSESSMENT HPI Comments 54-year-old male presents with a chief complaint of diarrhea x 1 month. Patient reports that he has been having black tarry stool for the past month. Patient mentions that he has been taking Pepto Bismol for the last two weeks, but states that he has been having black stool prior to taking it. Patient mentions that whenever he eats anything he immediately needs to use the restroom to have a bowel movement. Patient denies any nausea, vomiting, or rectal bleeding. Patient denies abdominal pain. PMHx: DM, HTN, HLD PSHx: Cholecystectomy SHx: Alcohol Use Sofia: HPI: Poor Historian. REVIEW OF SYSTEMS: CONSTITUTIONAL: Denies acute: fever, diaphoresis, chills, generalized weakness. HEAD: Denies acute: headache, photophobia Eyes: Denies acute: Double vision, vision loss, eye pain, eye discharge. EARS: Denies acute: tinnitus, hearing loss, ear discharge, ear pain, THROAT: Denies acute: sore throat, swelling, difficulty swallowing , pain with swallowing, change in voice. NECK: Denies acute: neck pain, neck swelling, stiff neck. HEART: Denies acute : chest pain, palpitations, LUNGS: Denies acute: SOB, wheezing, cough, hemoptysis ABDOMEN: Denies acute: abdominal pain, Nausea, Vomiting, , , hematemesis, hematochezia SKIN: Denies acute: rash, redness, lesions, itchiness. EXTREMITIES: Denies acute: calf pain, numbness, tingling, weakness, denies pain in extremity. Denies acute: Low back pain. Neuro: Denies acute: focal neurological deficit, motor or sensory focal neurological deficit, tremors, seizure like activity, confusion, dizziness, change in mental status, loss of bowel or bladder function, cauda equina like symptoms. : Denies acute: dysuria, hematuria, flank pain, increase in urinary frequency. PSYCH: Denies acute: hallucination, suicidal ideation, homicidal ideation. PHYSICAL EXAM: General: no acute distress, awake and alert. Head: normocephalic, atraumatic. Neck: supple, trachea is midline, no swelling. Throat: Normal phonation. Eyes:, no erythema, no purulent discharge, no proptosis, no icterus. Heart: regular rate, regular rhythm, no significant murmur appreciated. Lungs: no apparent respiratory distress, Able to speak in full sentences. No wheezing, no rhonchi, no crackles. No stridors Clear to auscultation bilaterally. Abdomen: non tender to palpation, non distended, soft, no guarding, no rebound, + bowel sounds. Neuro: Awake, Alert, oriented to name, self, situation, follows commands GCS=15. Speech is normal. Skin: no petechia, no purpura, no cyanosis, non-pale, not jaundice. Lower extremities: --no - Pitting edema no deformity, no focal swelling, no calf TTP. Makes eye contact. moves all four extremities. Face: no apparent facial droop. Ambulating in the ED independently. ED COURSE: Chief Complaint: Diarrhea Time Seen by MD: 17:08 Primary Care Provider: UNKNOWN Reviewed Notes: Nurses Notes, Allergies Allergies: Coded Allergies: NO KNOWN ALLERGIES (Unverified , 08/29/16) Home Meds Active Scripts Cephalexin Monohydrate (Cephalexin) 500 Mg Cap, 1 CAP PO QID, #28 CAP Prov:CAMRON HUNTLEY 04/08/23 Acetaminophen (Tylenol 8 Hour Arthritis) 650 Mg Tab, 650 MG PO TID, #30 TAB Prov:CAMRON HUNTLEY 04/08/23 Sucralfate (CARAFATE SUSP) 1 Gm/10 Ml Ss, 10 ML PO QID, #1200 ML 3 Refills Prov:ROHITH ANDINO MD 04/12/22 Pantoprazole Sodium Sesquihydr (Pantoprazole Sodium) 40 Mg Tab, 40 MG PO BID, #60 TAB Prov:ROHITH ANDINO MD 04/12/22 Reported Medications Insulin NPH (Human) (Isophane) (Humulin N) 100 Unit/Ml Inj, 20 UNIT SC HS, INJ 04/08/20 Atorvastatin Calcium (Lipitor) 20 Mg Tab, 1 TAB PO DAILY, #90 TAB 1 Refill 04/08/20 Lisinopril (Lisinopril) 20 Mg Tab, 20 MG PO DAILY for 30 Days, MG 04/08/20 Information Source: Patient Mode of Arrival: Ambulatory Past Medical History PAST MEDICAL HISTORY: DM, High Lipids, HTN Surgical History: Cholecystectomy Family History Family History: Reviewed,noncontributory to illness Social History Smoker: Non-Smoker Alcohol: Occasionally Drugs: Denies Drug Use Lives In: Home Was a procedure done? Was a procedure done?: No GI differential Dx Differential Diagnosis: Gastroenteritis, GI hemorrhage, Hepatitis, Inflammatory BD, Ischemic Bowel, Bacterial, Parasitic, Viral, Mass, Anemia, Esophageal Varicies, Stress Ulcer X-Ray, Labs, Meds, VS Vital Signs Date Time Temp Pulse Resp B/P (MAP) Pulse Ox O2 Delivery O2 Flow Rate FiO2 11/22/24 19:46 98.6 63 16 153/83 (106) 98 98.6 11/22/24 18:55 71 19 98 Room Air* 0 21 11/22/24 17:42 97.2 69 18 168/76 (106) 100 97.2 11/22/24 17:28 54 Lab Test 11/22/24 20:05 11/22/24 19:32 11/22/24 18:21 11/22/24 17:58 Range/Units Urine Color Light-yellow Yellow Urine Clarity Clear Clear Urine pH 5.5 5.0-9.0 Urine Specific Gravette 1.037 H 1.001-1.035 Urine Protein Trace H Negative Urine Ketones Negative Negative Urine Blood Negative Negative /uL Urine Nitrite Negative Negative Urine Bilirubin Negative Negative Urine Urobilinogen Normal Negative mg/dL Urine Leukocyte Esterase Negative Negative /uL Urine RBC 1 0 - 3 /hpf Urine Microscopic WBC < 1 0-3 /HPF Urine Squamous Epithelial Cells None seen <5 /hpf Urine Bacteria None seen None Seen /hpf Urine Glucose 4+ H Normal mg/dL Troponin I High Sensitivity 4 3 L </=54 ng/L White Blood Count 5.3 4.4-10.8 10^3/uL Red Blood Count 4.78 4.5-5.90 10^6/uL Hemoglobin 14.2 13.5-17.5 g/dL Hematocrit 41.5 41.0-53.0 % Mean Corpuscular Volume 86.9 80.0-100.0 fL Mean Corpuscular Hemoglobin 29.8 28.0-32.0 pg Mean Corpuscular Hemoglobin Concent 34.3 32.0-36.0 g/dL Red Cell Distribution Width 13.2 11.8-14.3 % Platelet Count 206 140-450 10^3/uL Mean Platelet Volume 8.7 6.9-10.8 fL Neutrophils (%) (Auto) 51.9 37.0-80.0 % Lymphocytes (%) (Auto) 33.4 10.0-50.0 % Monocytes (%) (Auto) 8.9 0.0-12.0 % Eosinophils (%) (Auto) 5.0 0.0-7.0 % Basophils (%) (Auto) 0.8 0.0-2.0 % Neutrophils # (Auto) 2.7 1.6-8.6 10 ^3/uL Lymphocytes # (Auto) 1.8 0.4-5.4 10 ^3/uL Monocytes # (Auto) 0.5 0-1.3 10 ^3/uL Eosinophils # (Auto) 0.3 0-0.8 10 ^3/uL Basophils # (Auto) 0 0-0.2 10 ^3/uL Nucleated Red Blood Cells 0.1 % Prothrombin Time 10.4 9.3-11.8 sec Prothrombin Time INR 0.98 0.9-1.15 Activated Partial Thromboplast Time 26.5 24.5-34.5 SEC Sodium Level 139 136-145 mmol/L Potassium Level 4.3 3.5-5.1 mmol/L Chloride Level 102 98-107 mmol/L Carbon Dioxide Level 30 20-31 mmol/L Anion Gap 7 5-15 Blood Urea Nitrogen 21 9-23 mg/dL Creatinine 1.23 0.700-1.30 mg/dL Glomerular Filtration Rate Calc 69 >90 mL/min BUN/Creatinine Ratio 17.1 10.0-20.0 Serum Glucose 368 H 74-106 mg/dL Lactic Acid Level 1.3 0.4-2.0 mmol/L Calcium Level 9.4 8.7-10.4 mg/dL Total Bilirubin 0.5 0.2-1.0 mg/dL Aspartate Amino Transferase (AST) 12 L 13-40 U/L Alanine Aminotransferase (ALT) 15 7-40 U/L Alkaline Phosphatase 180 H 46-116 U/L Total Protein 7.0 5.7-8.2 g/dL Albumin 4.7 3.2-4.8 g/dL Stool Occult Blood Negative Negative Stool Occult Blood Sample #3 Negative Stool for White Cells Pending Test 11/22/24 17:31 Range/Units POC Glucose 379 H 70-106 mg/dl Current Medications Medications (Trade) Dose Ordered Sig/Claudia Route Start Time Stop Time Status Last Admin Pantoprazole Sodium (Protonix) 40 mg ONCE ONCE IV 11/22/24 17:45 11/22/24 17:46 DC 11/22/24 18:47 Sodium Chloride 1,000 ml @ 1,000 mls/hr Q1H ONCE IV 11/22/24 18:45 11/22/24 19:44 DC 11/22/24 18:48 PATIENT: MYLES LAINEZ ACCT: [id number] UNIT: [id number] : 1970 LOC: ER ROOM / BED: / AGE / SEX: 54 / M ADM STATUS: REG ER SERVICE [id number] ORDERING PHYSICIAN: MARY ARTEAGA DO PROCEDURE(s): ABPL - CT AB PEL WO CON-NO ORAL OR IV REASON: diarrhea/ tarry stool ORDER NUMBER(s): [id number], ACCESSION NUMBER(s): [id number] Procedure: CT CT AB PEL WO CON-NO ORAL OR IV 11/22/2024 06:10 PM Indication: diarrhea/ tarry stool Comparison Study: CT ABD PELVIS WO CONTRAST on DOS: 04/11/22 Technique: Axial images were obtained and reformatted in coronal and sagittal planes. All CT scans at this medical facility are performed using dose modulation techniques as appropriate to a performed exam including the following: Automated exposure control was utilized; adjustment of the MA and/or KV according to patient size; and use of iterative reconstruction technique. CT Dose: CTDI volume is 7.52 mGy. Dose-length product is 414.87 mGy*cm FINDINGS: Lower Chest: Unremarkable. Hepatobiliary: Gallbladder is surgically absent. Spleen: Unremarkable. Pancreas: Unremarkable. Adrenal Glands: Unremarkable. tract: The kidneys are normal in size bilaterally without hydronephrosis or nephrolithiasis. The urinary bladder is unremarkable. GI tract: The stomach is grossly normal in appearance. No evidence of small bowel obstruction. Scattered colonic diverticula are noted without evidence of diverticulitis. The appendix is normal. Lymphatics: No mesenteric, retroperitoneal or periportal lymphadenopathy. Vasculature: Aorta is normal in caliber. Scattered calcified plaques are noted. Pelvic Organs: Prostate is moderately enlarged. Bones/soft tissues: No acute abnormality. Degenerative changes of the lumbar spine noted. Small fat-containing umbilical hernia. Other: None. IMPRESSION: 1. No CT evidence of acute abnormality in the abdomen or pelvis. ATED BY: RASHIDA RIVERA MD DICTATED DATE/TIME: 11/22/241833 SIGNED BY: RASHIDA RIVERA MD SIGNED DATE/TIME: 11/22/241833 Time of 1ST Reevaluation: 18:30 Reevaluation 1ST: Unchanged Patient Education/Counseling: Diagnosis, Treatment Family Education/Counseling: No Family Present Comments Patient presented with the above HPI.--diarrhea/melena----workup was initiated. patient was found with the above mentioned diagnosis. the following medications were ordered: please refer to order lists of meds and tests obtained by myself Dr. Arteaga. Patient ED course and VS have been stabilized. Patient has been reassessed in the ED and remained in a stable condition. Pertinent incidental findings were discussed with the patient and/or family. Patient/family voices understanding and is agreeable with plan. Patient has been observed in the ED adequate length of time to insure improvement/stability. Escalation of care considered: Consideration of escalation to observation or admission Patient was ADMITTED to the medicine team for further evaluation and treatment of their presentation. All the reports of any imaging studies that were ordered by myself were reviewed by myself. Departure 1 Departure Time of Disposition: 19:42 Impression: Primary Impression: Melena Additional Impression: Diarrhea Disposition: ADMITTED INPATIENT Admit to: Tele Condition: Stable Discharged With: Self Critical Care Note Critical Care Time?: No I personally scribed for MARY ARTEAGA DO ([email or web address]) on 11/22/24 at 18:02. Electronically submitted by Holger Mcconnell ([email or web address]). I personally scribed for MARY ARTEAGA DO ([email or web address]) on 11/22/24 at 19:12. Electronically submitted by Holger Mcconnell ([email or web address]). MARY ARTEAGA DO Nov 22, 2024 18:02
--- NOTE | 2024-11-22 18:36 | DVH ---
Procedure: CT CT AB PEL WO CON-NO ORAL OR IV 11/22/2024 06:10 PM Indication: diarrhea/ tarry stool Comparison Study: CT ABD PELVIS WO CONTRAST on DOS: 04/11/22 Technique: Axial images were obtained and reformatted in coronal and sagittal planes. All CT scans at this medical facility are performed using dose modulation techniques as appropriate to a performed e xam including the following: Automated exposure control was utilized; adjustment of the MA and/or KV according to patient size; and use of iterative reconstruction technique. CT Dose: CTDI volume is 7.5 2 mGy. Dose-length product is 414.87 mGy*cm FINDINGS: Lower Chest: Unremarkable. Hepatobiliary: Gallbladder is surgically absent. Spleen: Unremarkable. Pancreas: Unremarkable. Adrenal Glands: Unremarkable. tract: The kidneys are normal in size bilaterally without hydronephrosis or nephrolithiasis. The u rinary bladder is unremarkable. GI tract: The stomach is grossly normal in appearance. No evidence of small bowel obstruction. Scatte red colonic diverticula are noted without evidence of diverticulitis. The appendix is normal. Lymphatics: No mesenteric, retroperitoneal or periportal lymphadenopathy. Vasculature: Aorta is normal in caliber. Scattered calcified plaques are noted. Pelvic Organs: Prostate is moderately enlarged. Bones/soft tissues: No acute abnormality. Degenerative changes of the lumbar spine noted. Small fat-c ontaining umbilical hernia. Other: None. IMPRESSION: 1. No CT evidence of acute abnormality in the abdomen or pelvis.
[2024-11-22] MEDS: PANTOPRAZOLE 40 MG/10 ML VIAL INJ IV ONE (18:47)
[2024-11-22] MEDS: SODIUM CHLORIDE 0.9% 1,000 ML IV ONE (18:48)
[2024-11-22 18:55] VITALS: PULSE 71; RESP 19; O2SAT 98
[2024-11-22 19:04] LABS: Basophils # (auto) 0 10 ^3/uL (0-0.2); Basophils % (auto) 0.8 % (0.0-2.0); Eosinophils # (auto) 0.3 10 ^3/uL (0-0.8); Hematocrit 41.5 % (41.0-53.0); Hemoglobin 14.2 g/dL (13.5-17.5); Lymphocytes # (auto) 1.8 10 ^3/uL (0.4-5.4); Lymphocytes % (auto) 33.4 % (10.0-50.0); Mean Corpuscular Hemoglobin 29.8 pg (28.0-32.0); Mean Corpuscular Hgb Conc. 34.3 g/dL (32.0-36.0); Mean Corpuscular Volume 86.9 fL (80.0-100.0); Monocytes # (auto) 0.5 10 ^3/uL (0-1.3); Monocytes % (auto) 8.9 % (0.0-12.0); Neutrophils # (auto) 2.7 10 ^3/uL (1.6-8.6); Neutrophils % (auto) 51.9 % (37.0-80.0); Nucleated Red Blood Cells % 0.1 %; Platelet Count (auto) 206 10^3/uL (140-450); Red Blood Cells 4.78 10^6/uL (4.5-5.90); Red Cell Distribution Width 13.2 % (11.8-14.3); White Blood Cell 5.3 10^3/uL (4.4-10.8)
[2024-11-22 19:20] LABS: INR 0.98 (0.9-1.15); Partial Thromboplastin Time 26.5 SEC (24.5-34.5); Prothrombin Time 10.4 sec (9.3-11.8)
[2024-11-22 19:28] LABS: Alanine Aminotransferase 15 U/L (7-40); Albumin 4.7 g/dL (3.2-4.8); Anion Gap 7 (5-15); BUN/Creatinine Ratio 17.1 (10.0-20.0); Blood Urea Nitrogen 21 mg/dL (9-23); Calcium 9.4 mg/dL (8.7-10.4); Carbon Dioxide 30 mmol/L (20-31); Chloride 102 mmol/L (98-107); Potassium 4.3 mmol/L (3.5-5.1); Sodium 139 mmol/L (136-145)
[2024-11-22 19:29] LABS: Bilirubin, Total 0.5 mg/dL (0.2-1.0)
[2024-11-22 19:30] LABS: Alkaline Phosphatase 180 U/L (46-116); Aspartate Aminotransferase 12 U/L (13-40); Glucose 368 mg/dL (74-106)
[2024-11-22 20:39] LABS: Urine Bacteria None Seen /hpf (None Seen)
[2024-11-22 21:22] LABS: Urine Blood Negative /uL (Negative); Urine Clarity Clear (Clear); Urine Color Light-Yellow (Yellow); Urine Protein, UAD TRACE (Negative); Urine Specific Gravity 1.037 (1.001-1.035); Urine Squamous Epithelial Cell None Seen /hpf (<5); Urine Urobilinogen Normal (Negative); Urine WBC < 1 /HPF (0-3); Urine pH 5.5 (5.0-9.0)
[2024-11-22] MEDS ORDERED: ACETAMINOPHEN 325 MG TAB PO PRN (22:15)
[2024-11-22] MEDS ORDERED: DOCUSATE SOD 100 MG CAP PO PRN (22:15)
[2024-11-22] MEDS ORDERED: DEXTROSE (50%) 50ML SYRG IV PRN (22:15)
[2024-11-22] MEDS ORDERED: hydrALAZINE HCL 20 MG/ML VL IV PRN (22:15)
[2024-11-22] MEDS ORDERED: NITROGLYCERIN 0.4 MG SL TAB SL PRN (23:30)
[2024-11-22] MEDS ORDERED: MORPHINE SULFATE INJ 2 MG/ml SYRG IV PRN (23:30)
--- NOTE | 2024-11-22 23:31 | DVHHP2 ---
History of Present Illness Reason for Visit: Diarrhea History of Present Illness The patient is a 54-year-old male with past medical history of DM, hypertension, and hyperlipidemia who presented to [facility] ED with complaint of diarrhea for the past 1 month. Patient reports symptoms progressively get worse with weight loss, black tarry stools, admits taking Pepto-Bismol for the past 2 weeks. Patient was seen and evaluated in the ED, laboratory data shows WBC 5.5, platelets 206, sodium 139, potassium 4.3, BUN 21, creatinine 1.23, GFR 69, glucose 368. Abdomen/pelvis CT showed no evidence of acute abnormality in the abdomen or pelvis. Please see medication orders section in the computer. On my assessment, patient denied chest pain, no headache, no dizziness, no shortness a breath, no abdominal pain, no diarrhea at this moment, no rectal bleeding, no nausea, no vomiting, no fever, no chills. Patient was admitted for further evaluation and medical management. Past Medical History DM, HTN, HLD Past Surgical History Cholecystectomy Family History Reviewed, noncontributory to the management of this case. Past Social History The patient lives at home, drinks alcohol, denies smoking or illicit drugs abuse. Review of Systems Constitutional: Yes: Weakness; No: Fever, Chills, Sweats, Malaise, Other Eyes: No: Pain, Vision change, Conjunctivae inflammation, Eyelid inflammation, Other, Redness ENT: No: Ear pain, Ear discharge, Nose pain, Nose discharge, Nose congestion, Mouth pain, Mouth swelling, Throat pain, Throat swelling, Other Respiratory: No: Cough, Dry, Shortness of breath, SOB with excertion, Wheezing, Hemoptysis, Pleuritic Pain, Sputum, Wheezing, Other Gastrointestinal: Diarrhea, Melena; No: Nausea, Vomiting, Abdominal Pain, Constipation, Hematochezia, Other Genitourinary: No Dysuria, No Frequency, No Incontinence, No Hematuria, No Retention, No Other Musculoskeletal: No: other, neck pain, shoulder pain, arm pain, back pain, hand pain, leg pain, foot pain Skin: No: Rash, Lesions, Jaundice, Bruising, Other Neurological: No: Weakness, Numbness, Incoordination, Change in speech, Confusion, Seizures, Other Allergies: Coded Allergies: NO KNOWN ALLERGIES (Unverified , 08/29/16) Medications Current Medications Medications Dose Ordered Sig/Claudia Route Start Time Stop Time Status Last Admin Dose Admin Pantoprazole Sodium 40 mg BID IV 11/23/24 10:00 Atorvastatin Calcium 20 mg HS PO 11/23/24 22:00 Hydralazine HCl 10 mg Q6HP PRN IV 11/22/24 22:15 Lisinopril 20 mg DAILY PO 11/23/24 10:00 Diagnostic Test (Pha) 1 strip IQ4HR 11/23/24 00:00 Insulin Human Regular IQ4HR SC 11/23/24 00:00 Dextrose 50 ml UD PRN IV 11/22/24 22:15 Sodium Chloride 1,000 ml @ 60 mls/hr [id number] IV 11/22/24 22:15 Acetaminophen/ Hydrocodone Bitart 1 tab Q4HP PRN PO 11/22/24 22:15 Ondansetron HCl 4 mg Q4HP PRN IV 11/22/24 22:15 Docusate Sodium 100 mg BIDPRN PRN PO 11/22/24 22:15 Acetaminophen 650 mg Q6HP PRN PO 11/22/24 22:15 Exam Vital Signs Vital Signs Date Time Temp Pulse Resp B/P (MAP) Pulse Ox O2 Delivery O2 Flow Rate FiO2 11/22/24 23:09 97.7 59 16 150/78 (102) 98 97.7 11/22/24 18:55 Room Air* 0 21 General Appearance: Alert, Oriented X3, Cooperative, No acute distress HEENT: Atraumatic, PERRLA, EOMI, Mucous membr. moist/pink Respiratory: Clear to auscultation, Normal air movement Cardiovascular: Regular rate, Normal S1, Normal S2, No murmurs Abdominal: Normal bowel sounds, Soft, No tenderness, No hepatospenomegaly, No masses Extremities: No clubbing, No cyanosis, No edema, Normal pulses, No tenderness/swelling Skin: No rashes, No breakdown, No significant lesion Neuro: Normal gait, Normal speech, Strength at 5/5 X4 ext, Normal tone, Sensation intact, Cranial nerves 3-12 NL, Reflexes 2+ Psych/Mental Status: Mental status NL, Mood NL Labs/Xrays Labs Test 11/22/24 20:05 11/22/24 19:32 11/22/24 18:21 11/22/24 17:58 Range/Units Urine Color Light-yellow Yellow Urine Clarity Clear Clear Urine pH 5.5 5.0-9.0 Urine Specific [place] 1.037 H 1.001-1.035 Urine Protein Trace H Negative Urine Ketones Negative Negative Urine Blood Negative Negative /uL Urine Nitrite Negative Negative Urine Bilirubin Negative Negative Urine Urobilinogen Normal Negative mg/dL Urine Leukocyte Esterase Negative Negative /uL Urine RBC 1 0 - 3 /hpf Urine Microscopic WBC < 1 0-3 /HPF Urine Squamous Epithelial Cells None seen <5 /hpf Urine Bacteria None seen None Seen /hpf Urine Glucose 4+ H Normal mg/dL Troponin I High Sensitivity 4 </=54 ng/L White Blood Count 5.3 4.4-10.8 10^3/uL Red Blood Count 4.78 4.5-5.90 10^6/uL Hemoglobin 14.2 13.5-17.5 g/dL Hematocrit 41.5 41.0-53.0 % Mean Corpuscular Volume 86.9 80.0-100.0 fL Mean Corpuscular Hemoglobin 29.8 28.0-32.0 pg Mean Corpuscular Hemoglobin Concent 34.3 32.0-36.0 g/dL Red Cell Distribution Width 13.2 11.8-14.3 % Platelet Count 206 140-450 10^3/uL Mean Platelet Volume 8.7 6.9-10.8 fL Neutrophils (%) (Auto) 51.9 37.0-80.0 % Lymphocytes (%) (Auto) 33.4 10.0-50.0 % Monocytes (%) (Auto) 8.9 0.0-12.0 % Eosinophils (%) (Auto) 5.0 0.0-7.0 % Basophils (%) (Auto) 0.8 0.0-2.0 % Neutrophils # (Auto) 2.7 1.6-8.6 10 ^3/uL Lymphocytes # (Auto) 1.8 0.4-5.4 10 ^3/uL Monocytes # (Auto) 0.5 0-1.3 10 ^3/uL Eosinophils # (Auto) 0.3 0-0.8 10 ^3/uL Basophils # (Auto) 0 0-0.2 10 ^3/uL Nucleated Red Blood Cells 0.1 % Prothrombin Time 10.4 9.3-11.8 sec Prothrombin Time INR 0.98 0.9-1.15 Activated Partial Thromboplast Time 26.5 24.5-34.5 SEC Sodium Level 139 136-145 mmol/L Potassium Level 4.3 3.5-5.1 mmol/L Chloride Level 102 98-107 mmol/L Carbon Dioxide Level 30 20-31 mmol/L Anion Gap 7 5-15 Blood Urea Nitrogen 21 9-23 mg/dL Creatinine 1.23 0.700-1.30 mg/dL Glomerular Filtration Rate Calc 69 >90 mL/min BUN/Creatinine Ratio 17.1 10.0-20.0 Serum Glucose 368 H 74-106 mg/dL Lactic Acid Level 1.3 0.4-2.0 mmol/L Calcium Level 9.4 8.7-10.4 mg/dL Total Bilirubin 0.5 0.2-1.0 mg/dL Aspartate Amino Transferase (AST) 12 L 13-40 U/L Alanine Aminotransferase (ALT) 15 7-40 U/L Alkaline Phosphatase 180 H 46-116 U/L Total Protein 7.0 5.7-8.2 g/dL Albumin 4.7 3.2-4.8 g/dL Stool Occult Blood Negative Negative Stool Occult Blood Sample #3 Negative Stool for White Cells None seen Test 11/22/24 17:31 Range/Units POC Glucose 379 H 70-106 mg/dl PATIENT: MYLES LAINEZ ACCT: [id number] UNIT: [id number] : 1970 LOC: ER ROOM / BED: / AGE / SEX: 54 / M ADM STATUS: REG ER SERVICE 1976 ORDERING PHYSICIAN: MARY ARTEAGA DO PROCEDURE(s): ABPL - CT AB PEL WO CON-NO ORAL OR IV REASON: diarrhea/ tarry stool ORDER NUMBER(s): [id number], ACCESSION NUMBER(s): [id number] Procedure: CT CT AB PEL WO CON-NO ORAL OR IV 11/22/2024 06:10 PM Indication: diarrhea/ tarry stool Comparison Study: CT ABD PELVIS WO CONTRAST on DOS: 04/11/22 Technique: Axial images were obtained and reformatted in coronal and sagittal planes. All CT scans at this medical facility are performed using dose modulation techniques as appropriate to a performed exam including the following: Automated exposure control was utilized; adjustment of the MA and/or KV according to patient size; and use of iterative reconstruction technique. CT Dose: CTDI volume is 7.52 mGy. Dose-length product is 414.87 mGy*cm FINDINGS: Lower Chest: Unremarkable. Hepatobiliary: Gallbladder is surgically absent. Spleen: Unremarkable. Pancreas: Unremarkable. Adrenal Glands: Unremarkable. tract: The kidneys are normal in size bilaterally without hydronephrosis or nephrolithiasis. The urinary bladder is unremarkable. GI tract: The stomach is grossly normal in appearance. No evidence of small bowel obstruction. Scattered colonic diverticula are noted without evidence of diverticulitis. The appendix is normal. Lymphatics: No mesenteric, retroperitoneal or periportal lymphadenopathy. Vasculature: Aorta is normal in caliber. Scattered calcified plaques are noted. Pelvic Organs: Prostate is moderately enlarged. Bones/soft tissues: No acute abnormality. Degenerative changes of the lumbar spine noted. Small fat-containing umbilical hernia. Other: None. IMPRESSION: 1. No CT evidence of acute abnormality in the abdomen or pelvis. Assessment/Plan Assessment/Plan Melena Diarrhea Hypertension Diabetes mellitus with hyperglycemia Plan 1. Admit to telemetry unit 2. Breathing treatment 3. Pain control management 4. Management of fluids and electrolytes 5. Consultation for hospitalist 6. Diagnostic tests abdomen/pelvis CT 7. DVT prophylaxis-on SCDs 8. Repeat labs CBC, CMP in a.m. 9. Continue with current medical management 10. Treatment plan discussed with patient and RN. Patient verbalized understanding. Plan discussed with: Patient, Other (RN) My Orders Orders - EVERT MARINELLI DNP Procedure Category Date Status Time Pantoprazole PHA 11/23/24 In Process (Protonix) 10:00 Atorvastatin (Lipitor) PHA 11/23/24 In Process 22:00 Consistent DIET 11/23/24 Transmitted Carb(Ccho)Diabetes Breakfast Hydralazine Injection PHA 11/22/24 In Process (Apresoline Inject 22:15 Lisinopril Tablet PHA 11/23/24 In Process (Zestril Tablet) 10:00 Glucose Blood PHA 11/23/24 In Process (Accu-Chek Comfort 00:00 Insulin R (Human) PHA 11/23/24 In Process (Insulin R) 00:00 Dextrose 50% Syringe PHA 11/22/24 In Process 22:15 Allergies FUNMILAYO 11/22/24 In Process 22:14 Code Status CODE 11/22/24 Transmitted 22:14 Sodium Chloride 0.9% PHA 11/22/24 In Process 22:15 Oxygen Per Hour RT 11/22/24 Transmitted 22:14 Hydrocodone-Acet PHA 11/22/24 In Process 5/325mg Tab ([place] 22:15 Ondansetron Hcl PHA 11/22/24 In Process (Zofran) 22:15 Docusate Sodium PHA 11/22/24 In Process Capsule (Colace 22:15 Complete Blood Count LAB 11/23/24 Verified 04:00 Comprehensive LAB 11/23/24 Verified Metabolic Panel 04:00 Condition: Serious FUNMILAYO 11/22/24 In Process 22:14 Acetaminophen Tablet PHA 11/22/24 In Process (Tylenol Tablet) 22:15 Bedrest With Bathroom FUNMILAYO 11/22/24 In Process Privileg 22:14 Sequential FUNMILAYO 11/22/24 In Process Compression Device Admit ADMIT 11/22/24 Verified 23:27 Nitroglycerin PHA 11/22/24 Verified Sublingual (Ntrostat 23:30 Morphine Sulfate PHA 11/22/24 Verified Injection 23:30 Stat Ekg For Chest FUNMILAYO 11/22/24 Verified Pain 23:27 Notify Md Of Changes FUNMILAYO 11/22/24 Verified From Base 23:27 Informatics Consultant For [facility] 11/22/24 Verified 24 Hours 23:27 Emergency Dysrhythmia [facility] 11/22/24 Verified Protocol 23:27 Rhythm Strips Once [facility] 11/22/24 Verified Every Shift 23:27 Oxygen By Nasal RT 11/22/24 Verified Cannula 23:27 Problem List: (1) Melena (2) Diarrhea (3) Hypertension (4) Diabetes mellitus with hyperglycemia Date of Service: Nov 22, 2024 Billing Provider: EVERT MARINELLI DNP Common Visit Codes: [id number] INP/OBS CARE (HIGH) EVERT MARINELLI DNP Nov 22, 2024 23:31
[2024-11-23] VITALS (11 sets, daily range): BP systolic 97–156; BP diastolic 46–81; PULSE 54–65; RESP 16–20; TEMP 97.7–98.5; O2SAT 97–99
[2024-11-23] MEDS: ACCU-CHEK COMFORT CURVE STRIP VI SCH (00:19)
[2024-11-23] MEDS: InsuLIN REG 1unit/0.01ml Soln (100units/ml) SC SCH (00:32)
[2024-11-23] MEDS ORDERED: GABA-339 PO (02:44)
[2024-11-23] MEDS: SODIUM CHLORIDE 0.9% 1,000 ML IV SCH (02:47)
[2024-11-23 05:50] LABS: Basophils # (auto) 0 10 ^3/uL (0-0.2); Basophils % (auto) 1.1 % (0.0-2.0); Eosinophils # (auto) 0.3 10 ^3/uL (0-0.8); Eosinophils % (auto) 6.1 % (0.0-7.0); Hematocrit 39.1 % (41.0-53.0); Hemoglobin 13.6 g/dL (13.5-17.5); Lymphocytes # (auto) 1.6 10 ^3/uL (0.4-5.4); Lymphocytes % (auto) 36.9 % (10.0-50.0); Mean Corpuscular Hemoglobin 29.8 pg (28.0-32.0); Mean Corpuscular Hgb Conc. 34.7 g/dL (32.0-36.0); Mean Corpuscular Volume 85.9 fL (80.0-100.0); Monocytes # (auto) 0.4 10 ^3/uL (0-1.3); Neutrophils % (auto) 45.9 % (37.0-80.0); Platelet Count (auto) 173 10^3/uL (140-450); Red Blood Cells 4.56 10^6/uL (4.5-5.90); Red Cell Distribution Width 13.2 % (11.8-14.3); White Blood Cell 4.4 10^3/uL (4.4-10.8)
[2024-11-23 06:07] LABS: Alanine Aminotransferase 12 U/L (7-40); Albumin 4.3 g/dL (3.2-4.8); Alkaline Phosphatase 143 U/L (46-116); Anion Gap 6 (5-15); Aspartate Aminotransferase 10 U/L (13-40); BUN/Creatinine Ratio 16.8 (10.0-20.0); Bilirubin, Total 0.5 mg/dL (0.2-1.0); Blood Urea Nitrogen 17 mg/dL (9-23); Calcium 9.3 mg/dL (8.7-10.4); Carbon Dioxide 29 mmol/L (20-31); Chloride 109 mmol/L (98-107); Glucose 175 mg/dL (74-106); Sodium 144 mmol/L (136-145); Total Protein 6.7 g/dL (5.7-8.2)
[2024-11-23] MEDS: ONDANSETRON HCL 4 MG/2 ML VIAL IV PRN (06:55)
[2024-11-23] MEDS: PANTOPRAZOLE 40 MG/10 ML VIAL INJ IV SCH (09:07)
[2024-11-23] MEDS: LISINOPRIL 20 MG TAB PO SCH (09:07)
[2024-11-23] MEDS: HYDROcodone-ACET 5/325MG TAB PO PRN (12:24)
[2024-11-23] MEDS: GABAPENTIN 300 MG CAP PO SCH (21:34)
[2024-11-23] MEDS: ATORVASTATIN 20 MG TAB PO SCH (21:34)
[2024-11-23] MEDS: metroNIDAZOLE 500MG/100ML 100 ML IV SCH (21:35)
[2024-11-23] MEDS ORDERED: PATIENTS OWN MEDICATION (Gabapentin 2 TAB) PO SCH (22:00)
[2024-11-23] MEDS: PIPERACILLIN-TAZOB 3.375GM 100 ML IV SCH (22:41)
--- NOTE | 2024-11-23 23:02 | DVHPN2 ---
Subjective The patient is seen and examined at bedside. Since last night into today patient had four episodes of diarrhea with watery diarrhea no blood. Reviewed: Care Plan, H&P, Labs, Medications, Previous Orders, Radiology Changes from previous H/P or p: No Changes Eyes: No Pain, No Vision change, No Conjunctivae inflammation, No Eyelid inflammation, No Other, No Redness ENT: No Ear pain, No Ear discharge, No Nose pain, No Nose discharge, No Nose congestion, No Mouth pain, No Mouth swelling, No Throat pain, No Throat swelling, No Other Respiratory: No Cough, No Dry, No Shortness of breath, No SOB with excertion, No Wheezing, No Hemoptysis, No Pleuritic Pain, No Sputum, No Other Gastrointestinal: No Nausea, No Vomiting, No Abdominal Pain; Diarrhea; No Constipation; Melena; No Hematochezia, No Other Genitourinary: No Dysuria, No Frequency, No Incontinence, No Hematuria, No Retention, No Other Musculoskeletal: No other, No neck pain, No shoulder pain, No arm pain, No back pain, No hand pain, No leg pain, No foot pain Skin: No Rash, No Lesions, No Jaundice, No Bruising, No Other Objective Vitals Vital Signs Date Time Temp Pulse Resp B/P (MAP) Pulse Ox O2 Delivery O2 Flow Rate FiO2 11/23/24 21:00 98.5 58 20 97/70 (79) 97 98.5 11/23/24 08:10 Room Air* 0 21 Intake/Output Intake and Output 11/23/24 07:00 Intake Total 1265 ml Balance 1265 ml Intake Oral 10 ml IV Total 1255 ml # Voids 3 General Appearance: Alert, Oriented X3, Cooperative, No acute distress HEENT: Atraumatic, PERRLA, EOMI Neck: Supple Lungs: Clear to auscultation, Normal air movement Cardiovascular: Regular rate, Normal S1, Normal S2, No murmurs, Gallops, Rubs Abdomen: Normal bowel sounds, Soft Neuro: Cranial nerves 3-12 NL Psych/Mental Status: Mental status NL Medications Current Medications Medications Dose Ordered Sig/Claudia Route Start Time Stop Time Status Last Admin Dose Admin Pantoprazole Sodium 40 mg BID IV 11/23/24 10:00 11/23/24 22:33 40 MG Atorvastatin Calcium 20 mg HS PO 11/23/24 22:00 11/23/24 21:34 20 MG Hydralazine HCl 10 mg Q6HP PRN IV 11/22/24 22:15 Lisinopril 20 mg DAILY PO 11/23/24 10:00 11/23/24 09:07 20 MG Diagnostic Test (Pha) 1 strip IQ4HR 11/23/24 00:00 11/23/24 20:00 1 STRIP Insulin Human Regular IQ4HR SC 11/23/24 00:00 11/23/24 20:51 2 UNITS Dextrose 50 ml UD PRN IV 11/22/24 22:15 Sodium Chloride 1,000 ml @ 60 mls/hr [id number] IV 11/22/24 22:15 11/23/24 14:28 60 MLS/HR Acetaminophen/ Hydrocodone Bitart 1 tab Q4HP PRN PO 11/22/24 22:15 11/23/24 21:33 1 TAB Ondansetron HCl 4 mg Q4HP PRN IV 11/22/24 22:15 11/23/24 06:55 4 MG Docusate Sodium 100 mg BIDPRN PRN PO 11/22/24 22:15 Acetaminophen 650 mg Q6HP PRN PO 11/22/24 22:15 Nitroglycerin 0.4 mg Q5MINP PRN SL 11/22/24 23:30 Morphine Sulfate 2 mg Q30M PRN IV 11/22/24 23:30 Metronidazole 100 ml @ 100 mls/hr Q8HR IV 11/23/24 22:00 11/23/24 21:35 100 MLS/HR Piperacillin Sod/ Tazobactam Sod 100 ml @ 25 mls/hr Q8HR IV 11/23/24 22:00 11/23/24 22:41 25 MLS/HR Gabapentin 600 mg HS PO 11/23/24 22:00 11/23/24 21:34 600 MG Laboratory Results Laboratory Tests 11/23/24 05:13 Chemistry Test 11/23/24 05:13 Albumin 4.3 g/dL (3.2-4.8) Calcium Level 9.3 mg/dL (8.7-10.4) Total Protein 6.7 g/dL (5.7-8.2) LFT Test 11/23/24 05:13 Alanine Aminotransferase (ALT) 12 U/L (7-40) Alkaline Phosphatase 143 U/L (46-116) H Aspartate Amino Transferase (AST) 10 U/L (13-40) L Total Bilirubin 0.5 mg/dL (0.2-1.0) Urinalysis Test 11/22/24 20:05 Urine Color Light-yellow (Yellow) Urine Clarity Clear (Clear) Urine pH 5.5 (5.0-9.0) Urine Specific [place] 1.037 (1.001-1.035) Urine Protein Trace (Negative) H Urine Ketones Negative (Negative) Urine Blood Negative /uL (Negative) Urine Nitrite Negative (Negative) Urine Bilirubin Negative (Negative) Urine Urobilinogen Normal mg/dL (Negative) Urine Leukocyte Esterase Negative /uL (Negative) Urine RBC 1 /hpf (0 - 3) Urine Microscopic WBC < 1 /HPF (0-3) Urine Squamous Epithelial Cells None seen /hpf (<5) Urine Bacteria None seen /hpf (None Seen) Urine Glucose 4+ mg/dL (Normal) H Labs and/or images reviewed: Labs reviewed by me Assessment/Plan Assessment/Plan Diarrhea, for one month Report melena but hemoglobin is stable Hypertension Diabetes mellitus with hyperglycemia Continuing current management with IV fluid. We will follow up with stool culture and C diff colitis. In the meantime I am going to empirically put the patient on Levaquin 500 mg IV q.day and Flagyl 500 mg IV Q 8 hours. We will monitor diarrhea. Continuing sliding scale insulin. This medical document was created using an electronic medical record system with [employer] direct computerized dictation system. Although this document has been carefully reviewed, there may still be some phonetic and typographical errors. These areas are purely typographical due to imperfections of the software programs, and do not reflect any compromise in the patient's medical care. Plan discussed with: Patient My Orders Orders - LKOI TOLBERT MD Procedure Category Date Status Time Metronidazole PHA 11/23/24 In Process 500mg/100ml (Flagyl 22:00 Piperacillin-Tazob PHA 11/23/24 In Process 3.375gm (Zosyn 3.375g 22:00 Gabapentin Capsule PHA 11/23/24 In Process (Neurontin Capsule) 22:00 Date of Service: Nov 23, 2024 Billing Provider: LOKI TOLBERT MD Common Visit Codes: [id number] INP/OBS CARE(HIGH) LOKI TOLBERT MD Nov 23, 2024 23:02
[2024-11-24] VITALS (10 sets, daily range): BP systolic 101–139; BP diastolic 49–67; PULSE 51–70; RESP 12–19; TEMP 97.6–98.7; O2SAT 95–98
[2024-11-24] MEDS ORDERED: METR-344 PO (14:31)
[2024-11-24] MEDS ORDERED: LEVO500T91 PO (14:31)
--- NOTE | 2024-11-24 14:34 | DVHDS2 ---
Discharge Summary Date of Admission Nov 22, 2024 at 23:27 Date of Discharge: Nov 24, 2024 Admitting Diagnosis Diarrhea, for one month Report melena but hemoglobin is stable Hypertension Diabetes mellitus with hyperglycemia Labs/Diagnostic Data: Laboratory Results Test 11/24/24 12:03 11/23/24 05:13 11/22/24 20:05 11/22/24 19:32 POC Glucose 254 mg/dl (70-106) White Blood Count 4.4 10^3/uL (4.4-10.8) Red Blood Count 4.56 10^6/uL (4.5-5.90) Hemoglobin 13.6 g/dL (13.5-17.5) Hematocrit 39.1 % (41.0-53.0) Mean Corpuscular Volume 85.9 fL (80.0-100.0) Mean Corpuscular Hemoglobin 29.8 pg (28.0-32.0) Mean Corpuscular Hemoglobin Concent 34.7 g/dL (32.0-36.0) Red Cell Distribution Width 13.2 % (11.8-14.3) Platelet Count 173 10^3/uL (140-450) Mean Platelet Volume 8.6 fL (6.9-10.8) Neutrophils (%) (Auto) 45.9 % (37.0-80.0) Lymphocytes (%) (Auto) 36.9 % (10.0-50.0) Monocytes (%) (Auto) 10.0 % (0.0-12.0) Eosinophils (%) (Auto) 6.1 % (0.0-7.0) Basophils (%) (Auto) 1.1 % (0.0-2.0) Neutrophils # (Auto) 2.0 10 ^3/uL (1.6-8.6) Lymphocytes # (Auto) 1.6 10 ^3/uL (0.4-5.4) Monocytes # (Auto) 0.4 10 ^3/uL (0-1.3) Eosinophils # (Auto) 0.3 10 ^3/uL (0-0.8) Basophils # (Auto) 0 10 ^3/uL (0-0.2) Nucleated Red Blood Cells 0.0 % Sodium Level 144 mmol/L (136-145) Potassium Level 4.0 mmol/L (3.5-5.1) Chloride Level 109 mmol/L (98-107) Carbon Dioxide Level 29 mmol/L (20-31) Anion Gap 6 (5-15) Blood Urea Nitrogen 17 mg/dL (9-23) Creatinine 1.01 mg/dL (0.700-1.30) Glomerular Filtration Rate Calc 88 mL/min (>90) BUN/Creatinine Ratio 16.8 (10.0-20.0) Serum Glucose 175 mg/dL (74-106) Calcium Level 9.3 mg/dL (8.7-10.4) Total Bilirubin 0.5 mg/dL (0.2-1.0) Aspartate Amino Transferase (AST) 10 U/L (13-40) Alanine Aminotransferase (ALT) 12 U/L (7-40) Alkaline Phosphatase 143 U/L (46-116) Total Protein 6.7 g/dL (5.7-8.2) Albumin 4.3 g/dL (3.2-4.8) Urine Color Light-yellow (Yellow) Urine Clarity Clear (Clear) Urine pH 5.5 (5.0-9.0) Urine Specific [place] 1.037 (1.001-1.035) Urine Protein Trace (Negative) Urine Ketones Negative (Negative) Urine Blood Negative /uL (Negative) Urine Nitrite Negative (Negative) Urine Bilirubin Negative (Negative) Urine Urobilinogen Normal mg/dL (Negative) Urine Leukocyte Esterase Negative /uL (Negative) Urine RBC 1 /hpf (0 - 3) Urine Microscopic WBC < 1 /HPF (0-3) Urine Squamous Epithelial Cells None seen /hpf (<5) Urine Bacteria None seen /hpf (None Seen) Urine Glucose 4+ mg/dL (Normal) Troponin I High Sensitivity 4 ng/L (</=54) Test 11/22/24 18:21 11/22/24 17:58 Prothrombin Time 10.4 sec (9.3-11.8) Prothrombin Time INR 0.98 (0.9-1.15) Activated Partial Thromboplast Time 26.5 SEC (24.5-34.5) Lactic Acid Level 1.3 mmol/L (0.4-2.0) Stool Occult Blood Negative (Negative) Stool Occult Blood Sample #3 (Negative) Stool for White Cells None seen Other Laboratory Tests 11/23/24 05:13 Brief Hx & Hospital Course: This is a 54 years old male with past medical history of diabetes, hypertension, hyperlipidemia came to emergency department because diarrhea for one month. Patient said he also had black tarry stool however hemoglobin was stable at 14.2 and 14.3. The patient did not have any melena in the hospital. The patient does take Pepto-Bismol and I explained to him that Pepto-Bismol probable cause to stool look black however he did not have any source of bleeding. Stool culture is negative. C diff is pending. The patient was started on IV antibiotic with Levaquin and Flagyl and his diarrhea has stopped. So I am going to discharge the patient home. Advised the patient to follow up with GI specialist as outpatient. Patient may need a colonoscopy and endoscopy. Follow up with primary care physician 1-2 weeks. Activity as tolerated. Diet per home diet. I will empirically continuing antibiotic for seven more days. Physical exam: HEENT: Normocephalic atraumatic pupils equal react to light and accommodation. Extraocular muscles intact, conjunctiva pink, oropharynx moist, no thrush, no exudate. Lymphatic: No lymphadenopathy Cardiovascular exam: S1, S2 was heard. No murmurs, rubs, gallops Lung: Clear on auscultation bilaterally, no wheeze, rale, rhonchi. GI: Abdominal soft, nondistended, nontenderness, positive bowel sounds. Extremity: No crepitus, cyanosis, edema. Pedal pulses present bilateral. Full range of motion. Skin: Normal turgor, no rash. Psych: Alert, oriented x3. Neurology: No focal deficits, cranial nerve II to XII grossly intact. This medical document was created using an electronic medical record system with [employer] direct computerized dictation system. Although this document has been carefully reviewed, there may still be some phonetic and typographical errors. These areas are purely typographical due to imperfections of the software programs, and do not reflect any compromise in the patient's medical care. Condition at Discharge: Stable Final Diagnosis/Problems List Diarrhea, for one month, now resolved after IV antibiotic Report melena but hemoglobin is stable Hypertension Diabetes mellitus with hyperglycemia Discharge Disposition: Home Discharge Instruct/Medications Diet: Regular, Cardiac 2g Na,low cholest Activity: No Restrictions, As Tolerated Follow Up/Referral: pcp 1-2 weeks GI specialist as outpatient if still having diarrhea Medications: Flagyl 500mg tid levaquin 500mg daily Resume home meds Discharge Statement: "Patient was advised to return to the ER or call 911 if any headaches, dizziness, shortness of breath, chest pain, abdominal pain, bleeding, fevers, or worsening of medical condition. Patient was counseled about treatment plan, medications, possible side effects, patientverbalized understanding. All questions were answered to the best of my ability. This discharge took greater then 30 minutes in planning, reviewing documentation, counseling the patient, and discussing with other team members." ASSESSMENT ASSESSMENT Assessment diarrhea Date of Service: Nov 24, 2024 Billing Provider: LOKI TOLBERT MD Common Visit Codes: [id number] DISCH DAY >30min LOKI TOLBERT MD Nov 24, 2024 14:34
--- NOTE | 2024-11-25 11:07 | ECG ---
[facility] Test Date: 2024-11-22 Test Time: 17:28:40 Pat Name: MYLES LAINEZ Department: ER Room: 0208T Gender: M [employer] Installer: AARON : 1970 Requested By: MARY ARTEAGA Order Number: [id number] Reading MD: Measurements Intervals [place] Rate: 54 P: 20 CA: 153 QRS: 58 QRSD: 110 T: -21 QT: 449 QTc: 426 Interpretive Statements Sinus rhythm Borderline repolarization abnormality Please click the below link to view image of tracing.
== END 2024-11-24 21:10 | disposition home or self-care (01) | DRG 392 ==
LOC: ER 17:06 → OVERFLOW 23:27 → TELE-CENTR 23:30
PROVIDERS: ADMIT Nurse Practitioner Family; ATTEND Nurse Practitioner Family
DX: R19.7 Diarrhea, unspecified (principal); K92.1 Melena; E11.65 Type 2 diabetes mellitus with hyperglycemia; I10 Essential (primary) hypertension; E78.5 Hyperlipidemia, unspecified; Z79.899 Other long term (current) drug therapy; Z90.49 Acquired absence of other specified parts of digestive tract
CPT/HCPCS: 36415; 74176; 80053; 81001; 82270; 82962; 83605; 84484; 85025; 85048; 85610; 85730; 86850; 86900; 86901; 87045; 87177; 87427; 87493; 93005; 96361; 96374; 96375; G0378; J1815; J2405; J2470; J2543; J3490